=== PATIENT | male | born 1935 | race Native Hawaiian/Other Pacific Islander ===

== ENCOUNTER 2016-05-06 09:59 | Inpatient (IN) | payer MEDICARE, MEDICAID ==
[~2016-05-06] VITALS: Ht 167.6 cm; Wt 53.3 kg
[~2016-05-06 09:59] MED LIST: ASPI-1061 PO; CARV12 PO; FURO-152 PO; LEVO75TA4 PO; MECL-111 PO; METO25 PO; MULT-1203 PO; OLAN7.5T2 PO; PROZ10 PO; SIMV5TAB6 PO
[2016-05-06 10:42] LABS: BASOPHILS % (AUTO) 0.3 % (0.0-2.0); EOSINOPHILS % (AUTO) 13.5 % (1.0-6.0); HEMATOCRIT 29.9 % (41-53); HEMOGLOBIN 9.4 g/dL (13.5-17.5); LYMPHOCYTES # (AUTO) 0.4 K/uL (1.0-4.8); LYMPHOCYTES % (AUTO) 9.7 % (22.0-44.0); MEAN CORPUSCULAR HEMOGLOBIN 25.7 pg (26.0-34.0); MEAN CORPUSCULAR HGB CONC 31.3 G/dL (31.0-37.0); MEAN CORPUSCULAR VOLUME 82 fL (80-100); MONOCYTES # (AUTO) 0.3 K/uL (0.1-1.0); MONOCYTES % (AUTO) 7.3 % (2.0-9.0); NEUTROPHILS # (AUTO) 3.2 K/uL (1.8-7.7); NEUTROPHILS % (AUTO) 69.2 % (40.0-70.0); PLATELET COUNT (AUTO) 204 K/uL (150-450); RED BLOOD CELL COUNT(AUTO) 3.66 MIL/uL (4.50-5.90); RED CELL DISTRIBUTION WIDTH 17.4 % (11.5-14.5); WHITE BLOOD COUNT (AUTO) 4.6 K/uL (4.5-11.0)
[2016-05-06 10:44] LABS: ANION GAP 10 mmol/L (8-16); CALCIUM, TOTAL 8.5 mg/dL (8.8-10.5); CARBON DIOXIDE 24 mmol/L (22-29); CHLORIDE 109 mmol/L (98-107); GLOMERULAR FILTR. RATE CALC 53 mL/min (>60); POTASSIUM 3.7 mmol/L (3.5-5.1); SODIUM SERUM 143 mmol/L (136-145); UREA NITROGEN, BLOOD 19 mg/dL (7-18)
[2016-05-06 10:50] LABS: ALANINE AMINOTRANSFERASE 31 U/L (12-78); ALBUMIN 3.5 g/dL (3.4-5.0); ASPARTATE AMINOTRANSFERASE 19 U/L (15-37); BILIRUBIN,TOTAL 0.7 mg/dL (0.1-1.0); TOTAL PROTEIN, SERUM 7.4 g/dL (6.4-8.2)
[2016-05-06 10:56] LABS: RBC MORPHOLOGY COMMENT ABNORMAL RBC MORPH
[2016-05-06] MEDS ORDERED: LORazepam 2 MG TABLET PO ONE (11:30)
[2016-05-06] MEDS ORDERED: LORazepam 2 MG TABLET PO PRN (12:15)
[2016-05-06] MEDS ORDERED: ZOLPIDEM TARTRATE 10 MG TABLET PO PRN (12:15)
[2016-05-06] MEDS ORDERED: OLANZapine 5 MG RAPDIS TABLET PO PRN (12:15)
[2016-05-06 16:52] VITALS: BP 154/84
[2016-05-06] MEDS ORDERED: INFLUENZA VIRUS VACCINE QVS 2016-17 (3YR+)/PF 60 MCG/0.5 ML SYRINGE IM ONE (17:15)
[2016-05-06] MEDS ORDERED: PNEUMOCOCCAL VACCINE POLYVALENT 0.5 ML VIAL [PPSV23] IM ONE (17:15)
[2016-05-06] MEDS: CARVEDILOL 12.5 MG TABLET PO SCH (20:04)
[2016-05-06 20:05] VITALS: BP 150/75
[2016-05-06] MEDS ORDERED: HydrALAZINE HCL 25 MG TABLET PO PRN (21:30)
[2016-05-06] MEDS: OLANZapine 7.5 MG TABLET PO SCH (21:49)
[2016-05-07 06:21] VITALS: BP 116/64
[2016-05-07] MEDS: LEVOTHYROXINE SODIUM 75 MCG TABLET PO SCH (06:49)
[2016-05-07] MEDS ORDERED: ACETAMINOPHEN 325 MG TABLET PO PRN (07:00)
[2016-05-07] MEDS: MULTIVITAMINS WITH MINERALS, THERAPEUTIC TABLET PO SCH (08:37)
[2016-05-07] MEDS: ASPIRIN 81 MG CHEWABLE TABLET PO SCH (08:38)
[2016-05-07] MEDS: SIMVASTATIN 5 MG TABLET PO SCH (08:38)
[2016-05-07] MEDS: FUROSEMIDE 20 MG TABLET PO SCH (08:38)
[2016-05-07] MEDS: CARVEDILOL 12.5 MG TABLET PO SCH ×2 (08:38→16:09)
[2016-05-07] MEDS: NICOTINE 14 MG/24 HOUR PATCH TD SCH (08:40)
[2016-05-07] MEDS ORDERED: METOPROLOL TARTRATE 25 MG TABLET PO SCH (09:00)
[2016-05-07] MEDS: IBUPROFEN 400 MG TABLET PO PRN (13:04)
[2016-05-07 14:05] VITALS: BP 145/83
[2016-05-07 16:41] VITALS: BP 139/78
[2016-05-07] MEDS ORDERED: ONDANSETRON HCL 4 MG TABLET PO PRN (19:15)
[2016-05-07] MEDS: ONDANSETRON HCL 4 MG/2 ML VIAL IM PRN (20:07)
[2016-05-07] MEDS: OLANZapine 7.5 MG TABLET PO SCH ×2 (20:59→22:44)
[2016-05-08 04:30] VITALS: BP 125/72
[2016-05-08] MEDS: LEVOTHYROXINE SODIUM 75 MCG TABLET PO SCH (06:37)
[2016-05-08] MEDS: ASPIRIN 81 MG CHEWABLE TABLET PO SCH (08:30)
[2016-05-08] MEDS: SIMVASTATIN 5 MG TABLET PO SCH (08:30)
[2016-05-08] MEDS: FUROSEMIDE 20 MG TABLET PO SCH (08:30)
[2016-05-08] MEDS: CARVEDILOL 12.5 MG TABLET PO SCH ×2 (08:30→17:31)
[2016-05-08] MEDS: MULTIVITAMINS WITH MINERALS, THERAPEUTIC TABLET PO SCH (08:30)
[2016-05-08] MEDS: NICOTINE 14 MG/24 HOUR PATCH TD SCH (09:12)
[2016-05-08 10:22] VITALS: BP 141/77
[2016-05-08] MEDS: FERROUS SULFATE 325 MG EC TABLET PO SCH ×2 (11:53→17:32)
[2016-05-08] MEDS: ONDANSETRON HCL 4 MG/2 ML VIAL IM PRN (12:03)
[2016-05-08 17:22] VITALS: BP 138/72
[2016-05-08] MEDS: OLANZapine 7.5 MG TABLET PO SCH (20:59)
[2016-05-09 04:16] VITALS: BP 129/70
[2016-05-09] MEDS: LEVOTHYROXINE SODIUM 75 MCG TABLET PO SCH (05:57)
[2016-05-09] MEDS: FERROUS SULFATE 325 MG EC TABLET PO SCH ×2 (05:57→16:45)
[2016-05-09 08:30] VITALS: BP 154/74
[2016-05-09] MEDS: CARVEDILOL 12.5 MG TABLET PO SCH ×2 (09:30→16:34)
[2016-05-09] MEDS: ASPIRIN 81 MG CHEWABLE TABLET PO SCH (09:46)
[2016-05-09] MEDS: FUROSEMIDE 20 MG TABLET PO SCH (09:46)
[2016-05-09] MEDS: MULTIVITAMINS WITH MINERALS, THERAPEUTIC TABLET PO SCH (09:46)
[2016-05-09] MEDS: SIMVASTATIN 5 MG TABLET PO SCH (09:46)
[2016-05-09] MEDS: NICOTINE 14 MG/24 HOUR PATCH TD SCH (09:50)
[2016-05-09 16:23] VITALS: BP 142/78
[2016-05-09] MEDS: OLANZapine 7.5 MG TABLET PO SCH (20:32)
[2016-05-10] MEDS: LEVOTHYROXINE SODIUM 75 MCG TABLET PO SCH (06:34)
[2016-05-10] MEDS: FERROUS SULFATE 325 MG EC TABLET PO SCH ×2 (06:34→16:30)
[2016-05-10 08:07] VITALS: BP 155/98
[2016-05-10] MEDS: MULTIVITAMINS WITH MINERALS, THERAPEUTIC TABLET PO SCH (09:06)
[2016-05-10] MEDS: FUROSEMIDE 20 MG TABLET PO SCH (09:07)
[2016-05-10] MEDS: ASPIRIN 81 MG CHEWABLE TABLET PO SCH (09:07)
[2016-05-10] MEDS: CARVEDILOL 12.5 MG TABLET PO SCH ×2 (09:07→16:30)
[2016-05-10] MEDS: SIMVASTATIN 5 MG TABLET PO SCH (09:07)
[2016-05-10] MEDS: NICOTINE 14 MG/24 HOUR PATCH TD SCH (09:20)
[2016-05-10 16:44] VITALS: BP 123/78
[2016-05-10] MEDS: OLANZapine 7.5 MG TABLET PO SCH (20:37)
[2016-05-11 04:44] VITALS: BP 134/76
[2016-05-11] MEDS: LEVOTHYROXINE SODIUM 75 MCG TABLET PO SCH (07:04)
[2016-05-11] MEDS: FERROUS SULFATE 325 MG EC TABLET PO SCH ×2 (07:04→16:31)
[2016-05-11 08:07] VITALS: BP 144/87
[2016-05-11] MEDS: CARVEDILOL 12.5 MG TABLET PO SCH ×2 (09:30→16:31)
[2016-05-11] MEDS: ASPIRIN 81 MG CHEWABLE TABLET PO SCH (09:30)
[2016-05-11] MEDS: SIMVASTATIN 5 MG TABLET PO SCH (09:30)
[2016-05-11] MEDS: MULTIVITAMINS WITH MINERALS, THERAPEUTIC TABLET PO SCH (09:30)
[2016-05-11] MEDS: FUROSEMIDE 20 MG TABLET PO SCH (09:30)
[2016-05-11] MEDS: NICOTINE 14 MG/24 HOUR PATCH TD SCH (09:37)
[2016-05-11 16:26] VITALS: BP 149/98
[2016-05-11] MEDS: OLANZapine 7.5 MG TABLET PO SCH (20:19)
[2016-05-11 21:27] VITALS: BP 145/71
[2016-05-11] MEDS: IBUPROFEN 400 MG TABLET PO PRN (21:30)
[2016-05-12 05:47] VITALS: BP 137/81
[2016-05-12] MEDS: LEVOTHYROXINE SODIUM 75 MCG TABLET PO SCH (06:11)
[2016-05-12] MEDS: FERROUS SULFATE 325 MG EC TABLET PO SCH (06:14)
[2016-05-12 08:07] VITALS: BP 144/80
[2016-05-12] MEDS: MULTIVITAMINS WITH MINERALS, THERAPEUTIC TABLET PO SCH (08:10)
[2016-05-12] MEDS: FUROSEMIDE 20 MG TABLET PO SCH (08:10)
[2016-05-12] MEDS: ASPIRIN 81 MG CHEWABLE TABLET PO SCH (08:10)
[2016-05-12] MEDS: SIMVASTATIN 5 MG TABLET PO SCH (08:11)
[2016-05-12] MEDS: CARVEDILOL 12.5 MG TABLET PO SCH (08:11)
[2016-05-12] MEDS: NICOTINE 14 MG/24 HOUR PATCH TD SCH (08:13)
[2016-05-12] MEDS: IBUPROFEN 400 MG TABLET PO PRN (12:54)
[2016-05-12] MEDS ORDERED: OLAN7.5T2 PO (15:15)
== END 2016-05-12 16:00 | disposition home or self-care (01) | DRG 750 ==
LOC: EMS 10:01 → EEVIPCON 10:01 → 3EI 16:04
DX: F25.0 Schizoaffective disorder, bipolar type (principal); I11.0 Hypertensive heart disease with heart failure; I50.9 Heart failure, unspecified; R45.851 Suicidal ideations; F41.0 Panic disorder [episodic paroxysmal anxiety]; E03.9 Hypothyroidism, unspecified; E78.00 Pure hypercholesterolemia, unspecified; E78.5 Hyperlipidemia, unspecified; I25.10 Atherosclerotic heart disease of native coronary artery without angina pectoris; F39 Unspecified mood [affective] disorder; D64.9 Anemia, unspecified; J44.9 Chronic obstructive pulmonary disease, unspecified; N40.0 Benign prostatic hyperplasia without lower urinary tract symptoms; Z59.0 Homelessness; Z79.899 Other long term (current) drug therapy; Z79.82 Long term (current) use of aspirin; Z98.890 Other specified postprocedural states
CPT/HCPCS: 83540; 83550; 87081; 93005; 99285; G0480; J2405

== ENCOUNTER 2016-07-13 15:55 | Emergency (ER) | payer MEDICARE, OTHER ==
[~2016-07-13] VITALS: Ht 167.6 cm; Wt 54.5 kg
[~2016-07-13 15:55] MED LIST changes: -MECL-111 PO; -METO25 PO; -MULT-1203 PO; -PROZ10 PO
[2016-07-13 16:17] LABS: BASOPHILS # (AUTO) 0.02 K/uL (0.00-0.20); BASOPHILS % (AUTO) 0.3 % (0.0-2.0); EOSINOPHILS # (AUTO) 0.44 K/uL (0.00-0.70); EOSINOPHILS % (AUTO) 7.02 % (1.0-6.0); HEMATOCRIT 37.2 % (41-53); HEMOGLOBIN 11.5 g/dL (13.5-17.5); LYMPHOCYTES # (AUTO) 0.8 K/uL (1.0-4.8); MEAN CORPUSCULAR HEMOGLOBIN 22.1 pg (26.0-34.0); MEAN CORPUSCULAR HGB CONC 30.8 G/dL (31.0-37.0); MEAN CORPUSCULAR VOLUME 72 fL (80-100); MONOCYTES # (AUTO) 0.4 K/uL (0.1-1.0); MONOCYTES % (AUTO) 6.1 % (2.0-9.0); NEUTROPHILS # (AUTO) 4.6 K/uL (1.8-7.7); NEUTROPHILS % (AUTO) 73.6 % (40.0-70.0); PLATELET COUNT (AUTO) 236 K/uL (150-450); RED BLOOD CELL COUNT(AUTO) 5.18 MIL/uL (4.50-5.90); RED CELL DISTRIBUTION WIDTH 21.2 % (11.5-14.5); WHITE BLOOD COUNT (AUTO) 6.3 K/uL (4.5-11.0)
[2016-07-13 16:26] LABS: ANION GAP 10 mmol/L (8-16); CALCIUM, TOTAL 8.4 mg/dL (8.8-10.5); CARBON DIOXIDE 27 mmol/L (22-29); CHLORIDE 102 mmol/L (98-107); CREATININE 1.34 mg/dL (0.60-1.30); GLOMERULAR FILTR. RATE CALC 51 mL/min (>60); POTASSIUM 4.3 mmol/L (3.5-5.1); SODIUM SERUM 139 mmol/L (136-145); UREA NITROGEN, BLOOD 27 mg/dL (7-18)
[2016-07-13 16:34] LABS: ALANINE AMINOTRANSFERASE 98 U/L (12-78); ALBUMIN 3.7 g/dL (3.4-5.0); ASPARTATE AMINOTRANSFERASE 86 U/L (15-37); BILIRUBIN,TOTAL 0.7 mg/dL (0.1-1.0); TOTAL PROTEIN, SERUM 7.8 g/dL (6.4-8.2)
[2016-07-13 20:21] VITALS: BP 151/90
== END 2016-07-13 21:08 | disposition home or self-care (01) ==
LOC: EMS 15:58
DX: F31.9 Bipolar disorder, unspecified (principal); I10 Essential (primary) hypertension; E78.00 Pure hypercholesterolemia, unspecified; Z79.82 Long term (current) use of aspirin; Z91.013 Allergy to seafood
CPT/HCPCS: 36415; 80053; 80307; 85025; 99285; G0480

== ENCOUNTER 2016-11-02 18:31 | Inpatient (IN) | payer MEDICARE, OTHER ==
[~2016-11-02] VITALS: Ht 167.6 cm; Wt 52.2 kg
[2016-11-02 20:13] LABS: BASOPHILS % (AUTO) 0.4 % (0.0-2.0); EOSINOPHILS % (AUTO) 11.7 % (1.0-6.0); HEMATOCRIT 38.7 % (41-53); HEMOGLOBIN 12.4 g/dL (13.5-17.5); LYMPHOCYTES # (AUTO) 0.6 K/uL (1.0-4.8); LYMPHOCYTES % (AUTO) 15.3 % (22.0-44.0); MEAN CORPUSCULAR HEMOGLOBIN 24.6 pg (26.0-34.0); MEAN CORPUSCULAR VOLUME 77 fL (80-100); MONOCYTES # (AUTO) 0.3 K/uL (0.1-1.0); MONOCYTES % (AUTO) 8.5 % (2.0-9.0); NEUTROPHILS # (AUTO) 2.3 K/uL (1.8-7.7); NEUTROPHILS % (AUTO) 64.1 % (40.0-70.0); PLATELET COUNT (AUTO) 160 K/uL (150-450); RED BLOOD CELL COUNT(AUTO) 5.04 MIL/uL (4.50-5.90); RED CELL DISTRIBUTION WIDTH 21.9 % (11.5-14.5); WHITE BLOOD COUNT (AUTO) 3.6 K/uL (4.5-11.0)
[2016-11-02 20:21] LABS: ANION GAP 9 mmol/L (8-16); CALCIUM, TOTAL 9.1 mg/dL (8.8-10.5); CARBON DIOXIDE 26 mmol/L (22-29); CHLORIDE 107 mmol/L (98-107); CREATININE 1.34 mg/dL (0.60-1.30); GLOMERULAR FILTR. RATE CALC 51 mL/min (>60); POTASSIUM 4.2 mmol/L (3.5-5.1); SODIUM SERUM 142 mmol/L (136-145); UREA NITROGEN, BLOOD 21 mg/dL (7-18)
[2016-11-02 20:37] LABS: B-TYPE NATRIURETIC PEPTIDE 3170 pg/mL (0-100)
[2016-11-02 20:41] LABS: INR 1.1 (0.9-1.1)
[2016-11-02] MEDS ORDERED: ASPIRIN 81 MG CHEWABLE TABLET PO ONE (20:45)
[2016-11-02] MEDS ORDERED: NITROGLYCERIN 2% (1 GM=INCH) PACKET TP ONE (20:45)
[2016-11-02] MEDS ORDERED: FUROSEMIDE 40 MG/4 ML VIAL IVP ONE (20:45)
[2016-11-02 20:46] LABS: ALANINE AMINOTRANSFERASE 54 U/L (12-78); ALBUMIN 3.3 g/dL (3.4-5.0); ASPARTATE AMINOTRANSFERASE 57 U/L (15-37); BILIRUBIN,TOTAL 0.9 mg/dL (0.1-1.0); CREATINE KINASE MB 3.2 ng/mL (0-5); CREATINE KINASE, TOTAL 173 U/L (39-308); TOTAL PROTEIN, SERUM 6.8 g/dL (6.4-8.2)
[2016-11-02] MEDS ORDERED: 0.9% SODIUM CHLORIDE 10 ML SYRINGE IVP PRN (21:15)
[2016-11-02 22:22] LABS: APPEARANCE,URINE CLEAR (CLEAR); GLUCOSE, URINE (UA) NEGATIVE (NEGATIVE); KETONES,URINE NEGATIVE (NEGATIVE); LEUKOCYTE ESTERASE ,URINE NEGATIVE (NEGATIVE); OCCULT BLOOD,URINE NEGATIVE (NEGATIVE); PROTEIN,URINE NEGATIVE (NEGATIVE)
[2016-11-02 22:23] VITALS: BP 149/89
[2016-11-02 22:23] LABS: ADD UA MICROSCOPIC NO
[2016-11-03] MEDS: ACETAMINOPHEN 325 MG TABLET PO PRN ×3 (00:52→09:49)
[2016-11-03 05:22] VITALS: BP 153/83
[2016-11-03 07:45] LABS: HEMATOCRIT 37.7 % (41-53); MEAN CORPUSCULAR HEMOGLOBIN 24.4 pg (26.0-34.0); MEAN CORPUSCULAR HGB CONC 31.9 G/dL (31.0-37.0); MEAN CORPUSCULAR VOLUME 77 fL (80-100); PLATELET COUNT (AUTO) 156 K/uL (150-450); RED BLOOD CELL COUNT(AUTO) 4.92 MIL/uL (4.50-5.90); RED CELL DISTRIBUTION WIDTH 21.8 % (11.5-14.5); WHITE BLOOD COUNT (AUTO) 3.4 K/uL (4.5-11.0)
[2016-11-03 07:56] VITALS: BP 145/89
[2016-11-03 08:09] LABS: ALBUMIN 3.2 g/dL (3.4-5.0); BILIRUBIN,TOTAL 0.9 mg/dL (0.1-1.0); CALCIUM, TOTAL 8.8 mg/dL (8.8-10.5); CREATININE 1.39 mg/dL (0.60-1.30); POTASSIUM 3.6 mmol/L (3.5-5.1); TOTAL PROTEIN, SERUM 6.4 g/dL (6.4-8.2)
[2016-11-03 09:40] LABS: BAND NEUTROPHILS % (MANUAL) 1 % (1-5); EOSINOPHILS % (MANUAL) 3 % (1-6); LYMPHOCYTES % (MANUAL) 54 % (22-44); TOTAL CELLS COUNTED 100
[2016-11-03 09:41] LABS: RBC MORPHOLOGY COMMENT ABNORMAL RBC MORPH
[2016-11-03 11:51] VITALS: BP 150/96
[2016-11-03] MEDS ORDERED: ONDANSETRON HCL 4 MG/2 ML VIAL IVP PRN (12:00)
[2016-11-03] MEDS ORDERED: ZOLPIDEM TARTRATE 5 MG TABLET PO PRN (12:00)
[2016-11-03] MEDS ORDERED: OxyCODONE HCL/ACETAMINOPHEN 5-325 MG TABLET PO PRN (12:00)
[2016-11-03] MEDS ORDERED: CloNIDine HCL 0.1 MG TABLET PO PRN (12:00)
[2016-11-03] MEDS ORDERED: BISACODYL 10 MG RECTAL RECTAL SUPPOSITORY PR PRN (12:00)
[2016-11-03] MEDS ORDERED: ACETAMINOPHEN 325 MG TABLET PO PRN (12:00)
[2016-11-03] MEDS ORDERED: MORPHINE SULFATE 2 MG/ML SYRINGE IVP PRN (12:00)
[2016-11-03] MEDS ORDERED: MAGNESIUM HYDROXIDE SUSPENSION 30 ML UDCUP PO PRN (12:00)
[2016-11-03] MEDS: CARVEDILOL 12.5 MG TABLET PO SCH ×2 (13:05→19:59)
[2016-11-03] MEDS: NITROGLYCERIN 2% (1 GM=INCH) PACKET TP SCH ×3 (13:05→23:21)
[2016-11-03] MEDS: ALBUTEROL SULFATE 2.5 MG/0.5 ML NEB SOLUTION NEB PRN (14:50)
[2016-11-03] MEDS: IPRATROPIUM BROMIDE 0.5 MG/2.5 ML NEB SOLUTION NEB PRN (14:50)
[2016-11-03 15:53] VITALS: BP 119/65
[2016-11-03 19:47] VITALS: BP 102/50
[2016-11-03] MEDS: HEPARIN SODIUM,PORCINE 5,000 UNITS/ML VIAL SQ SCH (19:59)
[2016-11-03] MEDS: OLANZapine 7.5 MG TABLET PO SCH (19:59)
[2016-11-04] VITALS (7 sets, daily range): BP systolic 116–140; BP diastolic 65–88
[2016-11-04] MEDS: NITROGLYCERIN 2% (1 GM=INCH) PACKET TP SCH ×4 (06:18→23:44)
[2016-11-04] MEDS: LEVOTHYROXINE SODIUM 75 MCG TABLET PO SCH (06:20)
[2016-11-04 07:03] LABS: BASOPHILS % (AUTO) 0.9 % (0.0-2.0); HEMATOCRIT 37.6 % (41-53); HEMOGLOBIN 12.3 g/dL (13.5-17.5); LYMPHOCYTES # (AUTO) 0.5 K/uL (1.0-4.8); LYMPHOCYTES % (AUTO) 15.9 % (22.0-44.0); MEAN CORPUSCULAR HEMOGLOBIN 24.7 pg (26.0-34.0); MEAN CORPUSCULAR HGB CONC 32.5 G/dL (31.0-37.0); MEAN CORPUSCULAR VOLUME 76 fL (80-100); MONOCYTES # (AUTO) 0.2 K/uL (0.1-1.0); MONOCYTES % (AUTO) 7.4 % (2.0-9.0); NEUTROPHILS # (AUTO) 1.6 K/uL (1.8-7.7); NEUTROPHILS % (AUTO) 49.4 % (40.0-70.0); PLATELET COUNT (AUTO) 140 K/uL (150-450); RED BLOOD CELL COUNT(AUTO) 4.95 MIL/uL (4.50-5.90); WHITE BLOOD COUNT (AUTO) 3.3 K/uL (4.5-11.0)
[2016-11-04 07:04] LABS: EOSINOPHILS % (AUTO) 26.4 % (1.0-6.0)
[2016-11-04 07:36] LABS: ALBUMIN 2.9 g/dL (3.4-5.0); BILIRUBIN,TOTAL 0.8 mg/dL (0.1-1.0); CALCIUM, TOTAL 8.8 mg/dL (8.8-10.5); CREATININE 1.39 mg/dL (0.60-1.30); PHOSPHORUS 3.4 mg/dL (2.5-4.9); TOTAL PROTEIN, SERUM 6.3 g/dL (6.4-8.2)
[2016-11-04] MEDS: PANTOPRAZOLE SODIUM 40 MG DR TABLET PO SCH (08:07)
[2016-11-04] MEDS: CARVEDILOL 12.5 MG TABLET PO SCH ×2 (08:07→20:12)
[2016-11-04] MEDS: SIMVASTATIN 5 MG TABLET PO SCH (08:07)
[2016-11-04] MEDS: FUROSEMIDE 20 MG TABLET PO SCH (08:07)
[2016-11-04] MEDS: ASPIRIN 81 MG EC TABLET PO SCH (08:07)
[2016-11-04] MEDS: HEPARIN SODIUM,PORCINE 5,000 UNITS/ML VIAL SQ SCH ×2 (08:08→20:13)
[2016-11-04 10:00] LABS: RBC MORPHOLOGY COMMENT ABNORMAL RBC MORPH
[2016-11-04] MEDS: IPRATROPIUM BROMIDE 0.5 MG/2.5 ML NEB SOLUTION NEB PRN (14:25)
[2016-11-04] MEDS: ALBUTEROL SULFATE 2.5 MG/0.5 ML NEB SOLUTION NEB PRN (14:25)
[2016-11-04] MEDS ORDERED: DENTURE ADHESIVE 68 GM CREAM DT PRN (15:30)
[2016-11-04] MEDS: OLANZapine 7.5 MG TABLET PO SCH (20:13)
[2016-11-05 04:59] VITALS: BP 117/56
[2016-11-05] MEDS: NITROGLYCERIN 2% (1 GM=INCH) PACKET TP SCH ×2 (06:42→12:00)
[2016-11-05] MEDS: LEVOTHYROXINE SODIUM 75 MCG TABLET PO SCH (06:47)
[2016-11-05 07:45] VITALS: BP 121/75
[2016-11-05] MEDS: ASPIRIN 81 MG EC TABLET PO SCH (08:10)
[2016-11-05] MEDS: FUROSEMIDE 20 MG TABLET PO SCH (08:10)
[2016-11-05] MEDS: HEPARIN SODIUM,PORCINE 5,000 UNITS/ML VIAL SQ SCH (08:10)
[2016-11-05] MEDS: PANTOPRAZOLE SODIUM 40 MG DR TABLET PO SCH (08:10)
[2016-11-05] MEDS: CARVEDILOL 12.5 MG TABLET PO SCH (08:10)
[2016-11-05] MEDS: SIMVASTATIN 5 MG TABLET PO SCH (08:10)
[2016-11-05 11:35] VITALS: BP 110/65
== END 2016-11-05 14:10 | disposition home or self-care (01) | DRG 194 ==
LOC: EMS 18:31 → 5N 21:21
PROVIDERS: ADMIT Internal Medicine; ATTEND Internal Medicine
DX: I13.0 Hypertensive heart and chronic kidney disease with heart failure and stage 1 through stage 4 chronic kidney disease, or unspecified chronic kidney disease (principal); E44.0 Moderate protein-calorie malnutrition; I27.2 Other secondary pulmonary hypertension; F25.9 Schizoaffective disorder, unspecified; N18.3 Chronic kidney disease, stage 3 (moderate); I25.5 Ischemic cardiomyopathy; I50.23 Acute on chronic systolic (congestive) heart failure; E03.9 Hypothyroidism, unspecified; E78.00 Pure hypercholesterolemia, unspecified; N28.9 Disorder of kidney and ureter, unspecified; F31.9 Bipolar disorder, unspecified; H40.9 Unspecified glaucoma; G89.29 Other chronic pain; M54.9 Dorsalgia, unspecified; E78.5 Hyperlipidemia, unspecified; Z91.013 Allergy to seafood; Z79.899 Other long term (current) drug therapy; Z79.82 Long term (current) use of aspirin; Z98.49 Cataract extraction status, unspecified eye; Z68.1 Body mass index [BMI] 19.9 or less, adult; Z91.19 Patient's noncompliance with other medical treatment and regimen; Z82.49 Family history of ischemic heart disease and other diseases of the circulatory system
CPT/HCPCS: 83735; 84100; 93005; 93306; 94640; 96374; 99285; J1644; J1940; J2270

== ENCOUNTER 2018-01-19 16:06 | Emergency (ER) | payer MEDICARE, MEDICAID ==
[~2018-01-19] VITALS: Ht 152.4 cm; Wt 54.5 kg
[~2018-01-19 16:06] MED LIST changes: -ASPI-1061 PO; +ASPI81TA87 PO
[2018-01-19] MEDS ORDERED: GuaiFENesin/D-METHORPHAN [SUGAR-FREE] 200-20MG/10 ML SYRUP UDCUP PO ONE (19:00)
[2018-01-19] MEDS ORDERED: IBUPROFEN 600 MG TABLET PO ONE (19:00)
[2018-01-19 19:34] VITALS: BP 161/75
== END 2018-01-19 19:36 | disposition home or self-care (01) ==
LOC: EMS 16:07
DX: S83.92XA Sprain of unspecified site of left knee, initial encounter (principal); I10 Essential (primary) hypertension; E78.00 Pure hypercholesterolemia, unspecified; F31.9 Bipolar disorder, unspecified; W01.0XXA Fall on same level from slipping, tripping and stumbling without subsequent striking against object, initial encounter; Y93.01 Activity, walking, marching and hiking; Y92.89 Other specified places as the place of occurrence of the external cause; Y99.8 Other external cause status

== ENCOUNTER 2018-02-03 12:04 | Emergency (ER) | payer MEDICARE, MEDICAID ==
[~2018-02-03] VITALS: Ht 165.1 cm; Wt 54.5 kg
[2018-02-03] MEDS ORDERED: IBUPROFEN 600 MG TABLET PO ONE (14:15)
[2018-02-03] MEDS ORDERED: LIDOCAINE 5% TRANSDERMAL PATCH TD ONE (14:15)
[2018-02-03 15:07] VITALS: BP 134/62
== END 2018-02-03 15:08 | disposition home or self-care (01) ==
LOC: EMS 12:06
DX: G89.29 Other chronic pain (principal); M54.5 Low back pain; R05 Cough; F31.9 Bipolar disorder, unspecified; H40.9 Unspecified glaucoma; E78.00 Pure hypercholesterolemia, unspecified; I10 Essential (primary) hypertension; Z98.890 Other specified postprocedural states; Z79.82 Long term (current) use of aspirin; Z79.899 Other long term (current) drug therapy; Z91.013 Allergy to seafood

== ENCOUNTER 2018-05-21 21:53 | Emergency (ER) | payer MEDICARE, MEDICAID ==
[~2018-05-21] VITALS: Ht 170.2 cm; Wt 71.0 kg
[~2018-05-21 21:53] MED LIST changes: +SIMV5TAB59 PO; -SIMV5TAB6 PO
[2018-05-21 22:51] LABS: BASOPHILS % (AUTO) 0.2 % (0.0-2.0); EOSINOPHILS % (AUTO) 4.3 % (1.0-6.0); HEMOGLOBIN 14.6 g/dL (13.5-17.5); LYMPHOCYTES # (AUTO) 0.4 K/uL (1.0-4.8); LYMPHOCYTES % (AUTO) 6.1 % (22.0-44.0); MEAN CORPUSCULAR HEMOGLOBIN 26.6 pg (26.0-34.0); MEAN CORPUSCULAR HGB CONC 33.3 G/dL (31.0-37.0); MEAN CORPUSCULAR VOLUME 80 fL (80-100); MONOCYTES # (AUTO) 0.4 K/uL (0.1-1.0); MONOCYTES % (AUTO) 5.8 % (2.0-9.0); NEUTROPHILS # (AUTO) 5.7 K/uL (1.8-7.7); NEUTROPHILS % (AUTO) 83.6 % (40.0-70.0); PLATELET COUNT (AUTO) 121 K/uL (150-450); RED CELL DISTRIBUTION WIDTH 19.2 % (11.5-14.5)
[2018-05-21 23:13] LABS: ANION GAP 12 mmol/L (8-16); CALCIUM, TOTAL 9.7 mg/dL (8.8-10.5); CARBON DIOXIDE 27 mmol/L (22-29); CHLORIDE 103 mmol/L (98-107); CREATININE 1.12 mg/dL (0.60-1.30); GLUCOSE,RANDOM 148 mg/dL (70-110); POTASSIUM 3.3 mmol/L (3.5-5.1); SODIUM SERUM 142 mmol/L (136-145); UREA NITROGEN, BLOOD 17 mg/dL (7-18)
[2018-05-21 23:14] LABS: GLOMERULAR FILTR. RATE CALC > 60 mL/min (>60)
[2018-05-21 23:17] LABS: ALANINE AMINOTRANSFERASE 77 U/L (12-78); ALKALINE PHOSPHATASE 144 U/L (46-116); ASPARTATE AMINOTRANSFERASE 49 U/L (15-37); BILIRUBIN,TOTAL 0.6 mg/dL (0.1-1.0); TOTAL PROTEIN, SERUM 8.3 g/dL (6.4-8.2)
[2018-05-21] MEDS ORDERED: IOVERSOL 320 MG/ML 100 ML VIAL ONE (23:59)
[2018-05-21] MEDS ORDERED: SODIUM CHLORIDE 0.9% 100 ML ONE (23:59)
[2018-05-22 00:36] LABS: LIPASE 246 U/L (73-393)
[2018-05-22] MEDS ORDERED: ACETAMINOPHEN 325 MG TABLET PO ONE (02:45)
[2018-05-22 05:50] VITALS: BP 137/85
== END 2018-05-22 06:18 | disposition home or self-care (01) ==
LOC: EMS 21:55
DX: K44.9 Diaphragmatic hernia without obstruction or gangrene (principal); N28.1 Cyst of kidney, acquired; K40.90 Unilateral inguinal hernia, without obstruction or gangrene, not specified as recurrent; R42 Dizziness and giddiness; I10 Essential (primary) hypertension; E78.00 Pure hypercholesterolemia, unspecified; F31.9 Bipolar disorder, unspecified; Z79.899 Other long term (current) drug therapy; Z79.82 Long term (current) use of aspirin
CPT/HCPCS: 36415; 70450; 71045; 74177; 80053; 83690; 84484; 85025; 93005; 99284; J7050; Q9967

== ENCOUNTER 2018-06-09 21:28 | Emergency (ER) | payer MEDICARE, MEDICAID ==
[~2018-06-09] VITALS: Ht 175.3 cm; Wt 61.4 kg
[2018-06-09] MEDS ORDERED: LEVO75CA2 PO (22:47)
[2018-06-09] MEDS ORDERED: OLAN5TAB2 PO (22:47)
[2018-06-09] MEDS ORDERED: METO25XL PO (22:47)
[2018-06-09] MEDS ORDERED: AMLO-511 PO (22:47)
[2018-06-09] MEDS ORDERED: ATOR40TA28 PO (22:47)
[2018-06-09] MEDS ORDERED: IBUPROFEN 800 MG TABLET PO ONE (23:30)
[2018-06-09] MEDS ORDERED: CloNIDine HCL 0.2 MG TABLET PO ONE (23:30)
[2018-06-09] MEDS ORDERED: FUROSEMIDE 20 MG TABLET PO ONE (23:30)
[2018-06-09] MEDS ORDERED: ASPIRIN 325 MG TABLET PO ONE (23:45)
[2018-06-10 03:05] VITALS: BP 131/77
== END 2018-06-10 03:44 | disposition home or self-care (01) ==
LOC: EMS 21:30
DX: K40.90 Unilateral inguinal hernia, without obstruction or gangrene, not specified as recurrent (principal); I10 Essential (primary) hypertension; F31.9 Bipolar disorder, unspecified; E78.00 Pure hypercholesterolemia, unspecified; Z79.899 Other long term (current) drug therapy; Z79.82 Long term (current) use of aspirin
CPT/HCPCS: 93005

== ENCOUNTER 2018-06-16 04:58 | Emergency (ER) | payer MEDICARE, MEDICAID ==
[~2018-06-16] VITALS: Ht 170.2 cm; Wt 75.0 kg
[~2018-06-16 04:58] MED LIST changes: +AMLO-511 PO; +ATOR40TA28 PO; -CARV12 PO; +LEVO75CA2 PO; +METO25XL PO; +OLAN5TAB2 PO; -OLAN7.5T2 PO; -SIMV5TAB59 PO
[2018-06-16 05:24] VITALS: BP 190/103
[2018-06-16] MEDS ORDERED: KETOROLAC TROMETHAMINE 60 MG/2 ML VIAL IM ONE (05:30)
== END 2018-06-16 06:20 | disposition home or self-care (01) ==
LOC: EMS 05:00
DX: G89.29 Other chronic pain (principal); M79.672 Pain in left foot; M79.671 Pain in right foot; E78.00 Pure hypercholesterolemia, unspecified; H40.9 Unspecified glaucoma; I10 Essential (primary) hypertension; F31.9 Bipolar disorder, unspecified; Z79.899 Other long term (current) drug therapy; Z91.013 Allergy to seafood; Z98.49 Cataract extraction status, unspecified eye; Z79.82 Long term (current) use of aspirin
CPT/HCPCS: 96372; 99283; J1885

== ENCOUNTER 2018-06-18 09:33 | Emergency (ER) | payer MEDICARE, MEDICAID ==
[~2018-06-18] VITALS: Ht 165.1 cm; Wt 69.5 kg
[2018-06-18] MEDS ORDERED: OxyCODONE HCL/ACETAMINOPHEN 5-325 MG TABLET PO ONE (11:15)
[2018-06-18 11:33] LABS: BASOPHILS % (AUTO) 0.4 % (0.0-2.0); EOSINOPHILS % (AUTO) 14.1 % (1.0-6.0); HEMATOCRIT 37.3 % (41-53); HEMOGLOBIN 12.2 g/dL (13.5-17.5); LYMPHOCYTES # (AUTO) 0.4 K/uL (1.0-4.8); LYMPHOCYTES % (AUTO) 9.3 % (22.0-44.0); MEAN CORPUSCULAR HEMOGLOBIN 27.3 pg (26.0-34.0); MEAN CORPUSCULAR HGB CONC 32.8 G/dL (31.0-37.0); MEAN CORPUSCULAR VOLUME 83 fL (80-100); MONOCYTES # (AUTO) 0.4 K/uL (0.1-1.0); MONOCYTES % (AUTO) 7.9 % (2.0-9.0); NEUTROPHILS # (AUTO) 3.2 K/uL (1.8-7.7); NEUTROPHILS % (AUTO) 68.3 % (40.0-70.0); PLATELET COUNT (AUTO) 156 K/uL (150-450); RED BLOOD CELL COUNT(AUTO) 4.48 MIL/uL (4.50-5.90); RED CELL DISTRIBUTION WIDTH 17.7 % (11.5-14.5)
[2018-06-18 11:44] LABS: ANION GAP 8 mmol/L (8-16); CALCIUM, TOTAL 9.3 mg/dL (8.8-10.5); CARBON DIOXIDE 28 mmol/L (22-29); CHLORIDE 106 mmol/L (98-107); CREATININE 1.09 mg/dL (0.60-1.30); GLUCOSE,RANDOM 98 mg/dL (70-110); POTASSIUM 3.5 mmol/L (3.5-5.1); SODIUM SERUM 142 mmol/L (136-145); UREA NITROGEN, BLOOD 15 mg/dL (7-18)
[2018-06-18 11:45] LABS: AMPHET/METH SCREEN,URINE NEGATIVE (NEGATIVE); BARBITURATE SCREEN, URINE NEGATIVE (NEGATIVE); BENZODIAZEPINES SCREEN,URINE NEGATIVE (NEGATIVE); CANNABINOID SCREEN,URINE NEGATIVE (NEGATIVE); COCAINE SCREEN,URINE NEGATIVE (NEGATIVE); METHADONE SCREEN, URINE NEGATIVE (NEGATIVE); OPIATE SCREEN,URINE NEGATIVE (NEGATIVE)
[2018-06-18 11:46] LABS: PHENCYCLIDINE SCREEN,URINE NEGATIVE (NEGATIVE)
[2018-06-18 11:47] LABS: GLOMERULAR FILTR. RATE CALC > 60 mL/min (>60)
[2018-06-18 11:53] LABS: APPEARANCE,URINE CLEAR (CLEAR); BILIRUBIN,URINE NEGATIVE (NEGATIVE); GLUCOSE, URINE (UA) NEGATIVE (NEGATIVE); KETONES,URINE NEGATIVE (NEGATIVE); LEUKOCYTE ESTERASE ,URINE NEGATIVE (NEGATIVE); NITRATE,URINE NEGATIVE (NEGATIVE); OCCULT BLOOD,URINE NEGATIVE (NEGATIVE); PROTEIN,URINE SEE CONFIRM (NEGATIVE)
[2018-06-18 11:54] LABS: B-TYPE NATRIURETIC PEPTIDE 486 pg/mL (0-100)
[2018-06-18 12:08] LABS: SULFOSALICYLIC ACID,URINE 1+ (Negative)
[2018-06-18 12:09] LABS: ALANINE AMINOTRANSFERASE 37 U/L (12-78); ALBUMIN 3.1 g/dL (3.4-5.0); ALKALINE PHOSPHATASE 108 U/L (46-116); ASPARTATE AMINOTRANSFERASE 34 U/L (15-37); BILIRUBIN,TOTAL 0.5 mg/dL (0.1-1.0); CREATINE KINASE, TOTAL ONLY 449 U/L (39-308); TOTAL PROTEIN, SERUM 7.2 g/dL (6.4-8.2)
[2018-06-18 12:11] LABS: BACTERIA,URINE None Seen /HPF (None Seen); RBC,URINE 0-2 /HPF (0-2); SQUAMOUS EPITHELIAL CELL,UR Few /LPF (None Seen); WBC,URINE None Seen /HPF (0-5)
[2018-06-18 14:24] VITALS: BP 160/100
== END 2018-06-18 14:53 | disposition home or self-care (01) ==
LOC: EMS 09:35
DX: G89.29 Other chronic pain (principal); M54.5 Low back pain; R05 Cough; E78.00 Pure hypercholesterolemia, unspecified; I10 Essential (primary) hypertension; F31.9 Bipolar disorder, unspecified; Z79.899 Other long term (current) drug therapy; Z91.013 Allergy to seafood
CPT/HCPCS: 93005

== ENCOUNTER 2018-07-25 16:23 | Emergency (ER) | payer MEDICARE, MEDICAID ==
[~2018-07-25] VITALS: Ht 165.1 cm; Wt 55.9 kg
[2018-07-25 18:58] LABS: BASOPHILS % (AUTO) 0.2 % (0.0-2.0); EOSINOPHILS % (AUTO) 1.1 % (1.0-6.0); HEMATOCRIT 35.4 % (41-53); HEMOGLOBIN 11.6 g/dL (13.5-17.5); LYMPHOCYTES # (AUTO) 0.3 K/uL (1.0-4.8); LYMPHOCYTES % (AUTO) 4.9 % (22.0-44.0); MEAN CORPUSCULAR HEMOGLOBIN 27.6 pg (26.0-34.0); MEAN CORPUSCULAR HGB CONC 32.9 G/dL (31.0-37.0); MEAN CORPUSCULAR VOLUME 84 fL (80-100); MONOCYTES # (AUTO) 0.4 K/uL (0.1-1.0); NEUTROPHILS # (AUTO) 5.4 K/uL (1.8-7.7); PLATELET COUNT (AUTO) 223 K/uL (150-450); RED BLOOD CELL COUNT(AUTO) 4.21 MIL/uL (4.50-5.90); RED CELL DISTRIBUTION WIDTH 15.6 % (11.5-14.5)
[2018-07-25 18:59] LABS: NEUTROPHILS % (AUTO) 87.8 % (40.0-70.0)
[2018-07-25 19:13] LABS: CALCIUM, TOTAL 9.3 mg/dL (8.8-10.5); CREATININE 1.47 mg/dL (0.60-1.30); POTASSIUM 3.3 mmol/L (3.5-5.1)
[2018-07-25 19:16] LABS: ALBUMIN 2.9 g/dL (3.4-5.0); BILIRUBIN,TOTAL 0.7 mg/dL (0.1-1.0); TOTAL PROTEIN, SERUM 8.5 g/dL (6.4-8.2)
[2018-07-25 19:45] LABS: APPEARANCE,URINE CLEAR (CLEAR); GLUCOSE, URINE (UA) NEGATIVE (NEGATIVE); KETONES,URINE NEGATIVE (NEGATIVE); LEUKOCYTE ESTERASE ,URINE NEGATIVE (NEGATIVE); NITRATE,URINE NEGATIVE (NEGATIVE); OCCULT BLOOD,URINE TRACE (NEGATIVE); PROTEIN,URINE POS 1+ (NEGATIVE)
[2018-07-25 19:46] LABS: BILIRUBIN,URINE PRELIM. POSITIVE (NEGATIVE)
[2018-07-25 19:59] LABS: BACTERIA,URINE None Seen /HPF (None Seen); RBC,URINE 0-2 /HPF (0-2); WBC,URINE 0-2 /HPF (0-5)
[2018-07-25 20:00] LABS: SQUAMOUS EPITHELIAL CELL,UR Rare /LPF (None Seen)
[2018-07-25] MEDS ORDERED: ACETAMINOPHEN 325 MG TABLET PO ONE (22:15)
[2018-07-25 22:56] VITALS: BP 123/76
[2018-07-26] MEDS ORDERED: PROZ10 PO (07:46)
== END 2018-07-25 23:00 | disposition home or self-care (01) ==
LOC: EMS 16:23
DX: M54.2 Cervicalgia (principal); I11.0 Hypertensive heart disease with heart failure; I50.9 Heart failure, unspecified; E78.00 Pure hypercholesterolemia, unspecified; Z91.013 Allergy to seafood; Z79.82 Long term (current) use of aspirin; Z79.899 Other long term (current) drug therapy
CPT/HCPCS: 72125; 73502

== ENCOUNTER 2018-07-26 07:22 | Emergency (ER) | payer MEDICARE, MEDICAID ==
[~2018-07-26] VITALS: Ht 160 cm; Wt 59.1 kg
[2018-07-26] MEDS ORDERED: TraMADol HCL 50 MG TABLET PO ONE (07:45)
[2018-07-26] MEDS ORDERED: PROZ10 PO (07:46)
[2018-07-26 08:59] VITALS: BP 122/70
== END 2018-07-26 09:00 | disposition home or self-care (01) ==
LOC: EMS 07:25
DX: S16.1XXA Strain of muscle, fascia and tendon at neck level, initial encounter (principal); I11.0 Hypertensive heart disease with heart failure; I50.9 Heart failure, unspecified; I25.10 Atherosclerotic heart disease of native coronary artery without angina pectoris; E78.00 Pure hypercholesterolemia, unspecified; X58.XXXA Exposure to other specified factors, initial encounter; Y93.89 Activity, other specified; Y92.89 Other specified places as the place of occurrence of the external cause; Y99.8 Other external cause status
CPT/HCPCS: 93970

== ENCOUNTER 2018-12-11 14:21 | Inpatient (IN) | payer MEDICARE, MEDICAID ==
[~2018-12-11] VITALS: Ht 167.6 cm; Wt 62.7 kg
[~2018-12-11 14:21] MED LIST changes: -AMLO-511 PO; +AMLO5TAB9 PO; -ATOR40TA28 PO; +PROZ10 PO
[2018-12-11 15:15] LABS: BASOPHILS % (AUTO) 0.4 % (0.0-2.0); EOSINOPHILS % (AUTO) 6.3 % (1.0-6.0); HEMATOCRIT 32.4 % (41-53); HEMOGLOBIN 10.6 g/dL (13.5-17.5); LYMPHOCYTES # (AUTO) 0.4 K/uL (1.0-4.8); LYMPHOCYTES % (AUTO) 8.5 % (22.0-44.0); MEAN CORPUSCULAR HEMOGLOBIN 29.5 pg (26.0-34.0); MEAN CORPUSCULAR HGB CONC 32.7 G/dL (31.0-37.0); MEAN CORPUSCULAR VOLUME 90 fL (80-100); MONOCYTES # (AUTO) 0.3 K/uL (0.1-1.0); MONOCYTES % (AUTO) 6.2 % (2.0-9.0); NEUTROPHILS # (AUTO) 3.6 K/uL (1.8-7.7); NEUTROPHILS % (AUTO) 78.6 % (40.0-70.0); PLATELET COUNT (AUTO) 142 K/uL (150-450); RED BLOOD CELL COUNT(AUTO) 3.59 MIL/uL (4.50-5.90); RED CELL DISTRIBUTION WIDTH 15.4 % (11.5-14.5)
[2018-12-11 15:28] LABS: ANION GAP 14 mmol/L (8-16); CARBON DIOXIDE 23 mmol/L (22-29); CHLORIDE 104 mmol/L (98-107); CREATININE 2.32 mg/dL (0.60-1.30); GLOMERULAR FILTR. RATE CALC 27 mL/min (>60); GLUCOSE,RANDOM 122 mg/dL (70-110); SODIUM SERUM 141 mmol/L (136-145); UREA NITROGEN, BLOOD 56 mg/dL (7-18)
[2018-12-11 15:34] LABS: ALANINE AMINOTRANSFERASE 19 U/L (12-78); ALBUMIN 3.9 g/dL (3.4-5.0); ALKALINE PHOSPHATASE 98 U/L (46-116); ASPARTATE AMINOTRANSFERASE 26 U/L (15-37); BILIRUBIN,TOTAL 0.5 mg/dL (0.1-1.0); TOTAL PROTEIN, SERUM 8.6 g/dL (6.4-8.2)
[2018-12-11 15:56] LABS: FREE T4 (FREE THYROXINE) 0.89 ng/dL (0.76-1.46); THYROID STIMULATING HORMONE 1.61 uIU/mL (0.36-3.74)
[2018-12-11 17:06] LABS: APPEARANCE,URINE CLEAR (CLEAR); BILIRUBIN,URINE NEGATIVE (NEGATIVE); GLUCOSE, URINE (UA) NEGATIVE (NEGATIVE); KETONES,URINE 15 mg/dL (NEGATIVE); LEUKOCYTE ESTERASE ,URINE NEGATIVE (NEGATIVE); NITRATE,URINE NEGATIVE (NEGATIVE); OCCULT BLOOD,URINE NEGATIVE (NEGATIVE); PROTEIN,URINE TRACE (NEGATIVE)
[2018-12-11 17:07] LABS: AMPHET/METH SCREEN,URINE NEGATIVE (NEGATIVE); BARBITURATE SCREEN, URINE NEGATIVE (NEGATIVE); BENZODIAZEPINES SCREEN,URINE NEGATIVE (NEGATIVE); CANNABINOID SCREEN,URINE NEGATIVE (NEGATIVE); COCAINE SCREEN,URINE NEGATIVE (NEGATIVE); METHADONE SCREEN, URINE NEGATIVE (NEGATIVE); OPIATE SCREEN,URINE NEGATIVE (NEGATIVE)
[2018-12-11 17:08] LABS: PHENCYCLIDINE SCREEN,URINE NEGATIVE (NEGATIVE)
[2018-12-11] MEDS ORDERED: LORazepam 1 MG TABLET PO ONE (17:15)
[2018-12-12] MEDS ORDERED: ZOLPIDEM TARTRATE 10 MG TABLET PO PRN (00:15)
[2018-12-12 00:40] VITALS: BP 154/97
[2018-12-12] MEDS ORDERED: PNEUMOCOCCAL VACCINE POLYVALENT 0.5 ML VIAL [PPSV23] IM ONE (03:30)
[2018-12-12] MEDS ORDERED: DOCUSATE SODIUM 100 MG CAPSULE PO PRN (08:00)
[2018-12-12] MEDS ORDERED: LOPERAMIDE HCL 2 MG CAPSULE PO PRN (08:00)
[2018-12-12] MEDS ORDERED: CloNIDine HCL 0.1 MG TABLET PO PRN (08:00)
[2018-12-12] MEDS ORDERED: ONDANSETRON HCL 4 MG TABLET PO PRN (08:00)
[2018-12-12] MEDS ORDERED: NICOTINE 14 MG/24 HOUR PATCH TD PRN (08:00)
[2018-12-12] MEDS: METOPROLOL SUCCINATE 25 MG ER TABLET PO SCH (08:26)
[2018-12-12] MEDS: AmLODIPine BESYLATE 5 MG TABLET PO SCH (08:27)
[2018-12-12] MEDS: LEVOTHYROXINE SODIUM 75 MCG TABLET PO SCH (08:27)
[2018-12-12] MEDS: ASPIRIN 81 MG EC TABLET PO SCH (08:27)
[2018-12-12] MEDS ORDERED: FUROSEMIDE 20 MG TABLET PO SCH (09:00)
[2018-12-12 10:36] VITALS: BP 154/84
[2018-12-12] MEDS: DENTURE ADHESIVE 68 GM CREAM DT PRN (10:51)
[2018-12-12] MEDS: IBUPROFEN 400 MG TABLET PO PRN ×2 (13:34→13:47)
[2018-12-12] MEDS: FLUoxetine HCL 10 MG CAPSULE PO SCH (14:45)
[2018-12-12] MEDS: OLANZapine 5 MG RAPDIS TABLET PO PRN (16:29)
[2018-12-12 16:47] VITALS: BP 137/78
[2018-12-12] MEDS: OLANZapine 5 MG TABLET PO SCH (20:24)
[2018-12-13 00:55] VITALS: BP 156/86
[2018-12-13] MEDS: LORazepam 2 MG TABLET PO PRN (00:57)
[2018-12-13] MEDS: LEVOTHYROXINE SODIUM 75 MCG TABLET PO SCH (06:40)
[2018-12-13 06:47] LABS: CHOL/HDL RATIO 2.6 (4.2-7.3)
[2018-12-13] MEDS ORDERED: LEVOTHYROXINE SODIUM 75 MCG TABLET PO SCH (07:00)
[2018-12-13 08:51] VITALS: BP 147/100
[2018-12-13] MEDS: ASPIRIN 81 MG EC TABLET PO SCH (09:23)
[2018-12-13] MEDS: AmLODIPine BESYLATE 5 MG TABLET PO SCH (09:23)
[2018-12-13] MEDS: FLUoxetine HCL 10 MG CAPSULE PO SCH (09:24)
[2018-12-13] MEDS: METOPROLOL SUCCINATE 25 MG ER TABLET PO SCH (09:24)
[2018-12-13] MEDS: DENTURE ADHESIVE 68 GM CREAM DT PRN (13:24)
[2018-12-13 18:18] VITALS: BP 158/82
[2018-12-13] MEDS: OLANZapine 5 MG TABLET PO SCH (20:38)
[2018-12-13] MEDS: IBUPROFEN 400 MG TABLET PO PRN (23:06)
[2018-12-14 02:20] VITALS: BP 144/84
[2018-12-14] MEDS: LEVOTHYROXINE SODIUM 75 MCG TABLET PO SCH (06:58)
[2018-12-14 07:51] LABS: CALCIUM, TOTAL 8.8 mg/dL (8.8-10.5); CREATININE 1.34 mg/dL (0.60-1.30); POTASSIUM 3.8 mmol/L (3.5-5.1)
[2018-12-14 09:00] VITALS: BP 174/108
[2018-12-14] MEDS: AmLODIPine BESYLATE 5 MG TABLET PO SCH (09:26)
[2018-12-14] MEDS: ASPIRIN 81 MG EC TABLET PO SCH (09:26)
[2018-12-14] MEDS: FLUoxetine HCL 10 MG CAPSULE PO SCH (09:26)
[2018-12-14] MEDS: METOPROLOL SUCCINATE 25 MG ER TABLET PO SCH (09:26)
[2018-12-14] MEDS ORDERED: AmLODIPine BESYLATE 5 MG TABLET PO ONE (11:30)
[2018-12-14 12:26] VITALS: BP 114/54
[2018-12-14 18:02] VITALS: BP 124/70
[2018-12-14] MEDS: OLANZapine 5 MG TABLET PO SCH (20:22)
[2018-12-15 00:59] VITALS: BP 147/67
[2018-12-15 02:45] VITALS: BP 142/58
[2018-12-15] MEDS: IBUPROFEN 400 MG TABLET PO PRN (02:48)
[2018-12-15] MEDS: GuaiFENesin/D-METHORPHAN [SUGAR-FREE] 200-20MG/10 ML SYRUP UDCUP PO PRN (02:55)
[2018-12-15] MEDS: MAGNESIUM HYDROXIDE SUSPENSION 30 ML UDCUP PO PRN (04:00)
[2018-12-15] MEDS: LEVOTHYROXINE SODIUM 75 MCG TABLET PO SCH (06:44)
[2018-12-15 09:03] VITALS: BP 138/67
[2018-12-15] MEDS: ASPIRIN 81 MG EC TABLET PO SCH (09:13)
[2018-12-15] MEDS: FLUoxetine HCL 10 MG CAPSULE PO SCH (09:14)
[2018-12-15] MEDS: AmLODIPine BESYLATE 10 MG TABLET PO SCH (09:14)
[2018-12-15] MEDS: METOPROLOL SUCCINATE 25 MG ER TABLET PO SCH (09:14)
[2018-12-15] MEDS ORDERED: LORazepam 2 MG/ML VIAL IM ONE (18:00)
[2018-12-15] MEDS ORDERED: HALOPERIDOL LACTATE 5 MG/ML VIAL IM ONE (18:00)
[2018-12-15 18:02] VITALS: BP 129/67
[2018-12-15] MEDS: OLANZapine 5 MG TABLET PO SCH (20:37)
[2018-12-15 22:07] VITALS: BP 159/91
[2018-12-16] VITALS (7 sets, daily range): BP systolic 130–156; BP diastolic 74–92
[2018-12-16] MEDS: IBUPROFEN 400 MG TABLET PO PRN ×2 (03:56→23:03)
[2018-12-16 04:23] LABS: CALCIUM, TOTAL 9.5 mg/dL (8.8-10.5); CREATININE 1.27 mg/dL (0.60-1.30); POTASSIUM 4.4 mmol/L (3.5-5.1)
[2018-12-16] MEDS: LEVOTHYROXINE SODIUM 75 MCG TABLET PO SCH (06:39)
[2018-12-16] MEDS: FLUoxetine HCL 10 MG CAPSULE PO SCH (09:00)
[2018-12-16] MEDS: AmLODIPine BESYLATE 10 MG TABLET PO SCH (09:00)
[2018-12-16] MEDS: METOPROLOL SUCCINATE 25 MG ER TABLET PO SCH (09:00)
[2018-12-16] MEDS: ASPIRIN 81 MG EC TABLET PO SCH (09:00)
[2018-12-16] MEDS: ACETAMINOPHEN 325 MG TABLET PO PRN (09:00)
[2018-12-16] MEDS: OLANZapine 5 MG TABLET PO SCH ×2 (11:15→20:46)
[2018-12-16] MEDS: LORazepam 2 MG TABLET PO PRN (11:50)
[2018-12-16] MEDS: OLANZapine 5 MG RAPDIS TABLET PO PRN (11:54)
[2018-12-17] MEDS: ACETAMINOPHEN 325 MG TABLET PO PRN (03:12)
[2018-12-17] MEDS: LEVOTHYROXINE SODIUM 75 MCG TABLET PO SCH (06:48)
[2018-12-17 08:00] VITALS: BP 143/93
[2018-12-17] MEDS: METOPROLOL SUCCINATE 25 MG ER TABLET PO SCH (09:09)
[2018-12-17] MEDS: OLANZapine 5 MG TABLET PO SCH ×2 (09:09→20:56)
[2018-12-17] MEDS: FLUoxetine HCL 10 MG CAPSULE PO SCH (09:09)
[2018-12-17] MEDS: ASPIRIN 81 MG EC TABLET PO SCH (09:10)
[2018-12-17] MEDS: AmLODIPine BESYLATE 10 MG TABLET PO SCH (09:10)
[2018-12-17] MEDS: FUROSEMIDE 20 MG TABLET PO SCH (09:11)
[2018-12-17 16:38] VITALS: BP 162/73
[2018-12-18] MEDS: LORazepam 2 MG TABLET PO PRN ×2 (03:07→09:03)
[2018-12-18] MEDS: LEVOTHYROXINE SODIUM 75 MCG TABLET PO SCH (06:58)
[2018-12-18] MEDS: AmLODIPine BESYLATE 10 MG TABLET PO SCH (09:03)
[2018-12-18] MEDS: FLUoxetine HCL 10 MG CAPSULE PO SCH (09:03)
[2018-12-18] MEDS: METOPROLOL SUCCINATE 25 MG ER TABLET PO SCH (09:03)
[2018-12-18] MEDS: OLANZapine 5 MG TABLET PO SCH ×2 (09:03→20:33)
[2018-12-18] MEDS: ASPIRIN 81 MG EC TABLET PO SCH (09:03)
[2018-12-18 09:05] VITALS: BP 126/70
[2018-12-18] MEDS: IBUPROFEN 400 MG TABLET PO PRN (09:08)
[2018-12-18 09:39] VITALS: BP 126/70
[2018-12-18 21:03] VITALS: BP 109/67
[2018-12-19 01:40] VITALS: BP 136/68
[2018-12-19] MEDS: LEVOTHYROXINE SODIUM 75 MCG TABLET PO SCH (06:51)
[2018-12-19 08:00] VITALS: BP 115/76
[2018-12-19] MEDS: FUROSEMIDE 20 MG TABLET PO SCH (08:52)
[2018-12-19] MEDS: AmLODIPine BESYLATE 10 MG TABLET PO SCH (08:52)
[2018-12-19] MEDS: FLUoxetine HCL 10 MG CAPSULE PO SCH (08:52)
[2018-12-19] MEDS: ASPIRIN 81 MG EC TABLET PO SCH (08:52)
[2018-12-19] MEDS: METOPROLOL SUCCINATE 25 MG ER TABLET PO SCH (08:53)
[2018-12-19] MEDS: OLANZapine 5 MG TABLET PO SCH ×2 (08:53→21:17)
[2018-12-19 17:14] VITALS: BP 129/74
[2018-12-19] MEDS: LORazepam 2 MG TABLET PO PRN (22:30)
[2018-12-20 03:34] VITALS: BP 142/90
[2018-12-20] MEDS: IBUPROFEN 400 MG TABLET PO PRN (03:34)
[2018-12-20] MEDS: LEVOTHYROXINE SODIUM 75 MCG TABLET PO SCH (06:54)
[2018-12-20] MEDS: METOPROLOL SUCCINATE 25 MG ER TABLET PO SCH (11:06)
[2018-12-20] MEDS: FLUoxetine HCL 10 MG CAPSULE PO SCH (11:06)
[2018-12-20] MEDS: LORazepam 2 MG TABLET PO PRN (11:06)
[2018-12-20] MEDS: OLANZapine 5 MG TABLET PO SCH ×2 (11:07→20:28)
[2018-12-20] MEDS: AmLODIPine BESYLATE 10 MG TABLET PO SCH (11:07)
[2018-12-20] MEDS: ASPIRIN 81 MG EC TABLET PO SCH (11:07)
[2018-12-20] MEDS: DIVALPROEX SODIUM 250 MG ER TABLET PO SCH ×2 (11:08→16:59)
[2018-12-20 11:23] VITALS: BP 120/68
[2018-12-20 18:55] VITALS: BP 116/75
[2018-12-20] MEDS: TraZODone HCL 50 MG TABLET PO SCH (20:28)
[2018-12-20] MEDS: GuaiFENesin/D-METHORPHAN [SUGAR-FREE] 200-20MG/10 ML SYRUP UDCUP PO PRN (22:57)
[2018-12-21 04:14] VITALS: BP 145/75
[2018-12-21] MEDS: IBUPROFEN 400 MG TABLET PO PRN (05:44)
[2018-12-21 06:44] VITALS: BP 141/71
[2018-12-21] MEDS: LEVOTHYROXINE SODIUM 75 MCG TABLET PO SCH (06:50)
[2018-12-21 08:00] VITALS: BP 128/72
[2018-12-21] MEDS: FLUoxetine HCL 10 MG CAPSULE PO SCH (08:38)
[2018-12-21] MEDS: DENTURE ADHESIVE 68 GM CREAM DT PRN (08:38)
[2018-12-21] MEDS: DIVALPROEX SODIUM 250 MG ER TABLET PO SCH ×2 (08:41→16:46)
[2018-12-21] MEDS: OLANZapine 5 MG RAPDIS TABLET PO PRN (08:41)
[2018-12-21] MEDS: ASPIRIN 81 MG EC TABLET PO SCH (08:41)
[2018-12-21] MEDS: METOPROLOL SUCCINATE 25 MG ER TABLET PO SCH (08:41)
[2018-12-21] MEDS: AmLODIPine BESYLATE 10 MG TABLET PO SCH (08:41)
[2018-12-21] MEDS: FUROSEMIDE 20 MG TABLET PO SCH (08:41)
[2018-12-21] MEDS: LORazepam 2 MG TABLET PO PRN (08:41)
[2018-12-21] MEDS: OLANZapine 5 MG TABLET PO SCH ×2 (08:41→20:48)
[2018-12-21 18:28] VITALS: BP 127/77
[2018-12-21] MEDS: TraZODone HCL 50 MG TABLET PO SCH (20:48)
[2018-12-22 00:01] VITALS: BP 121/65
[2018-12-22] MEDS: ACETAMINOPHEN 325 MG TABLET PO PRN (00:08)
[2018-12-22 00:20] VITALS: BP 106/65
[2018-12-22 01:10] VITALS: BP 119/60
[2018-12-22] MEDS: LORazepam 2 MG TABLET PO PRN (01:41)
[2018-12-22 06:45] LABS: CALCIUM, TOTAL 9.1 mg/dL (8.8-10.5); CREATININE 1.53 mg/dL (0.60-1.30); POTASSIUM 4.2 mmol/L (3.5-5.1)
[2018-12-22] MEDS: LEVOTHYROXINE SODIUM 75 MCG TABLET PO SCH (06:47)
[2018-12-22] MEDS: AmLODIPine BESYLATE 10 MG TABLET PO SCH (08:16)
[2018-12-22] MEDS: DIVALPROEX SODIUM 250 MG ER TABLET PO SCH ×2 (08:16→16:19)
[2018-12-22] MEDS: OLANZapine 5 MG TABLET PO SCH ×2 (08:16→20:33)
[2018-12-22] MEDS: FLUoxetine HCL 10 MG CAPSULE PO SCH (08:16)
[2018-12-22] MEDS: ASPIRIN 81 MG EC TABLET PO SCH (08:16)
[2018-12-22] MEDS: DENTURE ADHESIVE 68 GM CREAM DT PRN (08:18)
[2018-12-22] MEDS: METOPROLOL SUCCINATE 25 MG ER TABLET PO SCH (08:18)
[2018-12-22 08:52] VITALS: BP 158/86
[2018-12-22 16:06] VITALS: BP 51/68
[2018-12-22] MEDS: TraZODone HCL 50 MG TABLET PO SCH (20:33)
[2018-12-23 03:19] VITALS: BP 139/66
[2018-12-23] MEDS: IBUPROFEN 400 MG TABLET PO PRN (03:25)
[2018-12-23 04:20] VITALS: BP 135/65
[2018-12-23] MEDS: LEVOTHYROXINE SODIUM 75 MCG TABLET PO SCH (06:42)
[2018-12-23] MEDS: ASPIRIN 81 MG EC TABLET PO SCH (08:39)
[2018-12-23] MEDS: FUROSEMIDE 20 MG TABLET PO SCH (08:39)
[2018-12-23] MEDS: OLANZapine 5 MG TABLET PO SCH ×2 (08:39→20:11)
[2018-12-23] MEDS: DIVALPROEX SODIUM 250 MG ER TABLET PO SCH ×2 (08:39→16:18)
[2018-12-23] MEDS: AmLODIPine BESYLATE 10 MG TABLET PO SCH (08:39)
[2018-12-23] MEDS: METOPROLOL SUCCINATE 25 MG ER TABLET PO SCH (08:39)
[2018-12-23] MEDS: FLUoxetine HCL 10 MG CAPSULE PO SCH (08:40)
[2018-12-23] MEDS: MAGNESIUM HYDROXIDE SUSPENSION 30 ML UDCUP PO PRN (08:42)
[2018-12-23 09:24] VITALS: BP 136/93
[2018-12-23 16:36] VITALS: BP 123/79
[2018-12-23] MEDS: TraZODone HCL 50 MG TABLET PO SCH (20:11)
[2018-12-24 00:07] VITALS: BP 122/72
[2018-12-24] MEDS: LORazepam 2 MG TABLET PO PRN (00:08)
[2018-12-24] MEDS: LEVOTHYROXINE SODIUM 75 MCG TABLET PO SCH (06:48)
[2018-12-24] MEDS: ASPIRIN 81 MG EC TABLET PO SCH (08:13)
[2018-12-24] MEDS: OLANZapine 5 MG TABLET PO SCH ×2 (08:13→20:25)
[2018-12-24] MEDS: AmLODIPine BESYLATE 10 MG TABLET PO SCH (08:13)
[2018-12-24] MEDS: DIVALPROEX SODIUM 250 MG ER TABLET PO SCH ×2 (08:14→16:24)
[2018-12-24] MEDS: METOPROLOL SUCCINATE 25 MG ER TABLET PO SCH (08:14)
[2018-12-24] MEDS: GuaiFENesin/D-METHORPHAN [SUGAR-FREE] 200-20MG/10 ML SYRUP UDCUP PO PRN (08:15)
[2018-12-24] MEDS: FLUoxetine HCL 10 MG CAPSULE PO SCH (08:17)
[2018-12-24 09:29] VITALS: BP 122/76
[2018-12-24 17:10] VITALS: BP 131/66
[2018-12-24] MEDS: ACETAMINOPHEN 325 MG TABLET PO PRN (18:54)
[2018-12-24] MEDS: TraZODone HCL 50 MG TABLET PO SCH (20:25)
[2018-12-24 22:05] VITALS: BP 128/78
[2018-12-24] MEDS: METHYL SALICYLATE/MENTHOL 85 GM CREAM TP PRN (22:05)
[2018-12-25] MEDS: METHYL SALICYLATE/MENTHOL 85 GM CREAM TP PRN ×3 (03:05→03:11)
[2018-12-25] MEDS: LORazepam 2 MG TABLET PO PRN (03:56)
[2018-12-25 04:06] VITALS: BP 124/74
[2018-12-25] MEDS: LEVOTHYROXINE SODIUM 75 MCG TABLET PO SCH (06:53)
[2018-12-25 08:54] VITALS: BP 128/68
[2018-12-25] MEDS: FLUoxetine HCL 10 MG CAPSULE PO SCH (08:55)
[2018-12-25] MEDS: DIVALPROEX SODIUM 250 MG ER TABLET PO SCH ×3 (08:56→17:38)
[2018-12-25] MEDS: AmLODIPine BESYLATE 10 MG TABLET PO SCH (08:56)
[2018-12-25] MEDS: OLANZapine 5 MG TABLET PO SCH ×2 (08:56→20:36)
[2018-12-25] MEDS: FUROSEMIDE 20 MG TABLET PO SCH (08:56)
[2018-12-25] MEDS: METOPROLOL SUCCINATE 25 MG ER TABLET PO SCH (08:56)
[2018-12-25] MEDS: ASPIRIN 81 MG EC TABLET PO SCH (08:57)
[2018-12-25] MEDS: TraZODone HCL 50 MG TABLET PO SCH (20:36)
[2018-12-25 22:00] VITALS: BP 138/70
[2018-12-26 02:25] VITALS: BP 148/79
[2018-12-26] MEDS: DENTURE ADHESIVE 68 GM CREAM DT PRN (02:30)
[2018-12-26] MEDS: METHYL SALICYLATE/MENTHOL 85 GM CREAM TP PRN ×2 (02:30→22:00)
[2018-12-26] MEDS: LEVOTHYROXINE SODIUM 75 MCG TABLET PO SCH (06:42)
[2018-12-26 08:17] VITALS: BP 136/69
[2018-12-26] MEDS: DIVALPROEX SODIUM 250 MG ER TABLET PO SCH ×2 (09:15→16:46)
[2018-12-26] MEDS: METOPROLOL SUCCINATE 25 MG ER TABLET PO SCH (09:16)
[2018-12-26] MEDS: AmLODIPine BESYLATE 10 MG TABLET PO SCH (09:16)
[2018-12-26] MEDS: ASPIRIN 81 MG EC TABLET PO SCH (09:16)
[2018-12-26] MEDS: FLUoxetine HCL 10 MG CAPSULE PO SCH (09:17)
[2018-12-26] MEDS: OLANZapine 5 MG TABLET PO SCH ×2 (09:17→20:48)
[2018-12-26 16:00] VITALS: BP 128/93
[2018-12-26] MEDS: TraZODone HCL 50 MG TABLET PO SCH (20:48)
[2018-12-26 22:19] VITALS: BP 129/80
[2018-12-26] MEDS: IBUPROFEN 400 MG TABLET PO PRN (22:26)
[2018-12-26] MEDS: LORazepam 2 MG TABLET PO PRN (23:38)
[2018-12-27 00:18] VITALS: BP 115/61
[2018-12-27 05:46] LABS: BASOPHILS % (AUTO) 0.4 % (0.0-2.0); EOSINOPHILS % (AUTO) 10.5 % (1.0-6.0); HEMATOCRIT 29.8 % (41-53); HEMOGLOBIN 10.1 g/dL (13.5-17.5); LYMPHOCYTES # (AUTO) 0.6 K/uL (1.0-4.8); LYMPHOCYTES % (AUTO) 16.6 % (22.0-44.0); MEAN CORPUSCULAR HEMOGLOBIN 29.8 pg (26.0-34.0); MEAN CORPUSCULAR VOLUME 88 fL (80-100); MONOCYTES # (AUTO) 0.4 K/uL (0.1-1.0); MONOCYTES % (AUTO) 10.2 % (2.0-9.0); NEUTROPHILS # (AUTO) 2.4 K/uL (1.8-7.7); NEUTROPHILS % (AUTO) 62.3 % (40.0-70.0); PLATELET COUNT (AUTO) 127 K/uL (150-450); RED BLOOD CELL COUNT(AUTO) 3.41 MIL/uL (4.50-5.90); RED CELL DISTRIBUTION WIDTH 14.8 % (11.5-14.5)
[2018-12-27 06:07] LABS: CALCIUM, TOTAL 8.3 mg/dL (8.8-10.5); CREATININE 1.59 mg/dL (0.60-1.30)
[2018-12-27] MEDS: LEVOTHYROXINE SODIUM 75 MCG TABLET PO SCH (06:43)
[2018-12-27] MEDS: FLUoxetine HCL 10 MG CAPSULE PO SCH (09:28)
[2018-12-27] MEDS: AmLODIPine BESYLATE 10 MG TABLET PO SCH (09:28)
[2018-12-27] MEDS: ASPIRIN 81 MG EC TABLET PO SCH (09:29)
[2018-12-27] MEDS: FUROSEMIDE 20 MG TABLET PO SCH (09:29)
[2018-12-27] MEDS: DIVALPROEX SODIUM 250 MG ER TABLET PO SCH ×2 (09:30→17:01)
[2018-12-27] MEDS: METOPROLOL SUCCINATE 25 MG ER TABLET PO SCH (09:31)
[2018-12-27] MEDS: OLANZapine 5 MG TABLET PO SCH ×2 (09:31→20:20)
[2018-12-27 11:09] VITALS: BP 114/76
[2018-12-27] MEDS: GuaiFENesin/D-METHORPHAN [SUGAR-FREE] 200-20MG/10 ML SYRUP UDCUP PO PRN (14:34)
[2018-12-27 16:46] VITALS: BP 141/70
[2018-12-27] MEDS: TraZODone HCL 50 MG TABLET PO SCH (20:20)
[2018-12-28 00:05] VITALS: BP 137/67
[2018-12-28] MEDS: LORazepam 2 MG TABLET PO PRN ×2 (00:07→22:39)
[2018-12-28 06:38] VITALS: BP 145/77
[2018-12-28] MEDS: LEVOTHYROXINE SODIUM 75 MCG TABLET PO SCH (06:51)
[2018-12-28] MEDS: OLANZapine 5 MG TABLET PO SCH ×2 (08:08→20:22)
[2018-12-28] MEDS: AmLODIPine BESYLATE 10 MG TABLET PO SCH (08:08)
[2018-12-28] MEDS: ASPIRIN 81 MG EC TABLET PO SCH (08:08)
[2018-12-28] MEDS: DIVALPROEX SODIUM 250 MG ER TABLET PO SCH ×2 (08:08→18:00)
[2018-12-28] MEDS: METOPROLOL SUCCINATE 25 MG ER TABLET PO SCH (08:09)
[2018-12-28] MEDS: FLUoxetine HCL 10 MG CAPSULE PO SCH (08:10)
[2018-12-28] MEDS: AZITHROMYCIN 250 MG TABLET PO SCH (08:10)
[2018-12-28 10:30] VITALS: BP 127/70
[2018-12-28 16:08] VITALS: BP 118/60
[2018-12-28] MEDS: TraZODone HCL 50 MG TABLET PO SCH (20:22)
[2018-12-28] MEDS: METHYL SALICYLATE/MENTHOL 85 GM CREAM TP PRN (21:00)
[2018-12-28] MEDS: DENTURE ADHESIVE 68 GM CREAM DT PRN (21:00)
[2018-12-29 02:25] VITALS: BP 143/79
[2018-12-29] MEDS: LORazepam 2 MG TABLET PO PRN (02:45)
[2018-12-29] MEDS: LEVOTHYROXINE SODIUM 75 MCG TABLET PO SCH (06:51)
[2018-12-29 08:00] VITALS: BP 131/80
[2018-12-29] MEDS: ASPIRIN 81 MG EC TABLET PO SCH (09:46)
[2018-12-29] MEDS: OLANZapine 5 MG TABLET PO SCH ×2 (09:46→20:16)
[2018-12-29] MEDS: FUROSEMIDE 20 MG TABLET PO SCH (09:46)
[2018-12-29] MEDS: AmLODIPine BESYLATE 10 MG TABLET PO SCH (09:46)
[2018-12-29] MEDS: METOPROLOL SUCCINATE 25 MG ER TABLET PO SCH (09:46)
[2018-12-29] MEDS: DIVALPROEX SODIUM 250 MG ER TABLET PO SCH ×2 (09:47→16:09)
[2018-12-29] MEDS: FLUoxetine HCL 10 MG CAPSULE PO SCH (09:47)
[2018-12-29] MEDS: AZITHROMYCIN 250 MG TABLET PO SCH (09:47)
[2018-12-29 16:52] VITALS: BP 120/68
[2018-12-29] MEDS: TraZODone HCL 50 MG TABLET PO SCH (20:16)
[2018-12-29] MEDS: GuaiFENesin/D-METHORPHAN [SUGAR-FREE] 200-20MG/10 ML SYRUP UDCUP PO PRN (22:11)
[2018-12-30] MEDS: LORazepam 2 MG TABLET PO PRN (00:40)
[2018-12-30 06:28] LABS: CALCIUM, TOTAL 9.1 mg/dL (8.8-10.5); CREATININE 1.28 mg/dL (0.60-1.30); POTASSIUM 4.1 mmol/L (3.5-5.1)
[2018-12-30] MEDS: LEVOTHYROXINE SODIUM 75 MCG TABLET PO SCH (06:46)
[2018-12-30] MEDS: OLANZapine 5 MG TABLET PO SCH ×2 (09:13→20:42)
[2018-12-30] MEDS: METOPROLOL SUCCINATE 25 MG ER TABLET PO SCH ×2 (09:14→14:06)
[2018-12-30] MEDS: ASPIRIN 81 MG EC TABLET PO SCH (09:15)
[2018-12-30] MEDS: AmLODIPine BESYLATE 10 MG TABLET PO SCH ×2 (09:15→14:06)
[2018-12-30] MEDS: DIVALPROEX SODIUM 250 MG ER TABLET PO SCH ×2 (09:15→18:00)
[2018-12-30] MEDS: AZITHROMYCIN 250 MG TABLET PO SCH (09:16)
[2018-12-30] MEDS: FLUoxetine HCL 10 MG CAPSULE PO SCH (09:16)
[2018-12-30 09:17] VITALS: BP 110/56
[2018-12-30] MEDS: BENZOCAINE/MENTHOL LOZENGE PO PRN (14:43)
[2018-12-30 15:37] VITALS: BP 137/81
[2018-12-30 16:37] VITALS: BP 133/70
[2018-12-30] MEDS: TraZODone HCL 50 MG TABLET PO SCH (20:42)
[2018-12-30 23:56] VITALS: BP 150/79
[2018-12-31] MEDS: OLANZapine 5 MG RAPDIS TABLET PO PRN (00:04)
[2018-12-31 00:16] VITALS: BP 139/81
[2018-12-31] MEDS: BENZOCAINE/MENTHOL LOZENGE PO PRN (00:30)
[2018-12-31] MEDS: GuaiFENesin/D-METHORPHAN [SUGAR-FREE] 200-20MG/10 ML SYRUP UDCUP PO PRN ×2 (02:59→16:17)
[2018-12-31] MEDS: LEVOTHYROXINE SODIUM 75 MCG TABLET PO SCH (06:34)
[2018-12-31 06:57] LABS: MAGNESIUM 2.2 mg/dL (1.80-2.40); PHOSPHORUS 3.3 mg/dL (2.5-4.9)
[2018-12-31] MEDS: DIVALPROEX SODIUM 250 MG ER TABLET PO SCH ×2 (08:47→16:49)
[2018-12-31] MEDS: OLANZapine 5 MG TABLET PO SCH ×2 (08:47→20:19)
[2018-12-31] MEDS: ASPIRIN 81 MG EC TABLET PO SCH (08:48)
[2018-12-31] MEDS: FUROSEMIDE 20 MG TABLET PO SCH (08:48)
[2018-12-31] MEDS: AZITHROMYCIN 250 MG TABLET PO SCH (08:49)
[2018-12-31] MEDS: METOPROLOL SUCCINATE 25 MG ER TABLET PO SCH (08:49)
[2018-12-31] MEDS: FLUoxetine HCL 10 MG CAPSULE PO SCH (08:49)
[2018-12-31] MEDS: AmLODIPine BESYLATE 10 MG TABLET PO SCH (08:49)
[2018-12-31 13:24] VITALS: BP 151/80
[2018-12-31 16:20] VITALS: BP 147/78
[2018-12-31] MEDS: TraZODone HCL 50 MG TABLET PO SCH (20:19)
[2018-12-31] MEDS: LORazepam 1 MG TABLET PO PRN (23:37)
[2018-12-31 23:38] VITALS: BP 140/56
[2018-12-31] MEDS: IBUPROFEN 400 MG TABLET PO PRN (23:38)
[2019-01-01 00:10] VITALS: BP 140/56
[2019-01-01 08:00] VITALS: BP 154/77
[2019-01-01] MEDS: OLANZapine 5 MG TABLET PO SCH ×2 (08:50→20:11)
[2019-01-01] MEDS: LEVOTHYROXINE SODIUM 75 MCG TABLET PO SCH (08:50)
[2019-01-01] MEDS: AZITHROMYCIN 250 MG TABLET PO SCH (08:50)
[2019-01-01] MEDS: ASPIRIN 81 MG EC TABLET PO SCH (08:51)
[2019-01-01] MEDS: METOPROLOL SUCCINATE 25 MG ER TABLET PO SCH (08:51)
[2019-01-01] MEDS: AmLODIPine BESYLATE 10 MG TABLET PO SCH (08:51)
[2019-01-01] MEDS: FLUoxetine HCL 10 MG CAPSULE PO SCH (08:51)
[2019-01-01] MEDS: DIVALPROEX SODIUM 250 MG ER TABLET PO SCH ×2 (08:51→17:16)
[2019-01-01] MEDS: GuaiFENesin/D-METHORPHAN [SUGAR-FREE] 200-20MG/10 ML SYRUP UDCUP PO PRN (09:30)
[2019-01-01 16:24] VITALS: BP 113/54
[2019-01-01] MEDS: TraZODone HCL 50 MG TABLET PO SCH (20:11)
[2019-01-02] MEDS: LORazepam 1 MG TABLET PO PRN ×3 (00:39→20:50)
[2019-01-02 01:14] VITALS: BP 118/66
[2019-01-02] MEDS: IBUPROFEN 400 MG TABLET PO PRN (01:14)
[2019-01-02] MEDS: GuaiFENesin/D-METHORPHAN [SUGAR-FREE] 200-20MG/10 ML SYRUP UDCUP PO PRN ×3 (01:42→19:35)
[2019-01-02] MEDS: LEVOTHYROXINE SODIUM 75 MCG TABLET PO SCH (06:54)
[2019-01-02 08:30] VITALS: BP 140/72
[2019-01-02] MEDS: FUROSEMIDE 20 MG TABLET PO SCH (08:38)
[2019-01-02] MEDS: METOPROLOL SUCCINATE 25 MG ER TABLET PO SCH (08:38)
[2019-01-02] MEDS: DIVALPROEX SODIUM 250 MG ER TABLET PO SCH ×2 (08:38→16:55)
[2019-01-02] MEDS: AmLODIPine BESYLATE 10 MG TABLET PO SCH (08:38)
[2019-01-02] MEDS: OLANZapine 5 MG TABLET PO SCH ×2 (08:38→20:59)
[2019-01-02] MEDS: ASPIRIN 81 MG EC TABLET PO SCH (08:38)
[2019-01-02] MEDS: FLUoxetine HCL 10 MG CAPSULE PO SCH (08:48)
[2019-01-02 17:11] VITALS: BP 114/56
[2019-01-02] MEDS: TraZODone HCL 50 MG TABLET PO SCH (20:59)
[2019-01-03 01:30] VITALS: BP 141/96
[2019-01-03] MEDS: LORazepam 1 MG TABLET PO PRN (01:42)
[2019-01-03] MEDS: IBUPROFEN 400 MG TABLET PO PRN (01:42)
[2019-01-03] MEDS: GuaiFENesin/D-METHORPHAN [SUGAR-FREE] 200-20MG/10 ML SYRUP UDCUP PO PRN ×2 (02:34→13:10)
[2019-01-03] MEDS: LEVOTHYROXINE SODIUM 75 MCG TABLET PO SCH (07:01)
[2019-01-03] MEDS: ASPIRIN 81 MG EC TABLET PO SCH (08:56)
[2019-01-03] MEDS: FLUoxetine HCL 10 MG CAPSULE PO SCH (08:56)
[2019-01-03] MEDS: AmLODIPine BESYLATE 10 MG TABLET PO SCH (08:56)
[2019-01-03] MEDS: DIVALPROEX SODIUM 250 MG ER TABLET PO SCH ×3 (09:00→17:00)
[2019-01-03] MEDS: METOPROLOL SUCCINATE 25 MG ER TABLET PO SCH (09:03)
[2019-01-03] MEDS: OLANZapine 5 MG TABLET PO SCH ×2 (09:05→21:00)
[2019-01-03 09:28] VITALS: BP 156/64
[2019-01-03] MEDS ORDERED: HALOPERIDOL LACTATE 5 MG/ML VIAL IM ONE (18:15)
[2019-01-03] MEDS ORDERED: DiphenhydrAMINE HCL 50 MG/ML VIAL IM ONE (18:15)
[2019-01-03] MEDS ORDERED: LORazepam 2 MG/ML VIAL IM ONE (18:15)
[2019-01-03] MEDS ORDERED: DiphenhydrAMINE HCL 50 MG/ML VIAL ONE (18:16)
[2019-01-03] MEDS ORDERED: HALOPERIDOL LACTATE 5 MG/ML VIAL ONE (18:16)
[2019-01-03] MEDS: TraZODone HCL 50 MG TABLET PO SCH (21:00)
[2019-01-04] MEDS: IBUPROFEN 400 MG TABLET PO PRN (06:22)
[2019-01-04 06:23] VITALS: BP 144/96
[2019-01-04] MEDS: LEVOTHYROXINE SODIUM 75 MCG TABLET PO SCH (06:41)
[2019-01-04 08:01] VITALS: BP 163/84
[2019-01-04] MEDS: AmLODIPine BESYLATE 10 MG TABLET PO SCH (08:31)
[2019-01-04] MEDS: DIVALPROEX SODIUM 250 MG ER TABLET PO SCH ×2 (08:31→17:00)
[2019-01-04] MEDS: HydrALAZINE HCL 25 MG TABLET PO SCH (08:31)
[2019-01-04] MEDS: FLUoxetine HCL 10 MG CAPSULE PO SCH (08:31)
[2019-01-04] MEDS: ASPIRIN 81 MG EC TABLET PO SCH (08:32)
[2019-01-04] MEDS: FUROSEMIDE 20 MG TABLET PO SCH (08:32)
[2019-01-04] MEDS: LORazepam 1 MG TABLET PO PRN ×3 (08:33→20:25)
[2019-01-04] MEDS: METOPROLOL SUCCINATE 25 MG ER TABLET PO SCH (08:34)
[2019-01-04] MEDS: OLANZapine 5 MG TABLET PO SCH ×2 (08:34→20:25)
[2019-01-04] MEDS: METHYL SALICYLATE/MENTHOL 85 GM CREAM TP PRN (12:38)
[2019-01-04 16:27] VITALS: BP 139/82
[2019-01-04] MEDS: TraZODone HCL 50 MG TABLET PO SCH (20:26)
[2019-01-05 01:50] VITALS: BP 160/89
[2019-01-05] MEDS: GuaiFENesin/D-METHORPHAN [SUGAR-FREE] 200-20MG/10 ML SYRUP UDCUP PO PRN ×2 (01:52→10:04)
[2019-01-05] MEDS: LORazepam 1 MG TABLET PO PRN ×2 (01:53→10:04)
[2019-01-05 02:20] VITALS: BP 144/81
[2019-01-05] MEDS: LEVOTHYROXINE SODIUM 75 MCG TABLET PO SCH (06:54)
[2019-01-05 08:09] VITALS: BP 156/81
[2019-01-05] MEDS: FLUoxetine HCL 20 MG CAPSULE PO SCH (09:44)
[2019-01-05] MEDS: FUROSEMIDE 20 MG TABLET PO SCH (09:44)
[2019-01-05] MEDS: METOPROLOL SUCCINATE 25 MG ER TABLET PO SCH (09:44)
[2019-01-05] MEDS: OLANZapine 5 MG TABLET PO SCH ×2 (09:45→20:40)
[2019-01-05] MEDS: DIVALPROEX SODIUM 250 MG ER TABLET PO SCH ×2 (09:45→16:19)
[2019-01-05] MEDS: AmLODIPine BESYLATE 10 MG TABLET PO SCH (09:45)
[2019-01-05] MEDS: ASPIRIN 81 MG EC TABLET PO SCH (09:45)
[2019-01-05] MEDS: HydrALAZINE HCL 25 MG TABLET PO SCH ×2 (09:47→16:19)
[2019-01-05 16:35] VITALS: BP 132/64
[2019-01-05] MEDS ORDERED: ACETAMINOPHEN 325 MG TABLET PO ONE (19:45)
[2019-01-05] MEDS: TraZODone HCL 50 MG TABLET PO SCH (20:40)
[2019-01-05] MEDS: METHYL SALICYLATE/MENTHOL 85 GM CREAM TP PRN (20:56)
[2019-01-06 00:30] VITALS: BP 141/90
[2019-01-06] MEDS: GuaiFENesin/D-METHORPHAN [SUGAR-FREE] 200-20MG/10 ML SYRUP UDCUP PO PRN ×2 (00:33→11:38)
[2019-01-06] MEDS: LORazepam 1 MG TABLET PO PRN (00:44)
[2019-01-06] MEDS: IBUPROFEN 400 MG TABLET PO PRN ×3 (00:44→21:12)
[2019-01-06] MEDS: LEVOTHYROXINE SODIUM 75 MCG TABLET PO SCH (06:41)
[2019-01-06 08:00] VITALS: BP 142/74
[2019-01-06] MEDS: OLANZapine 5 MG TABLET PO SCH ×2 (09:07→20:20)
[2019-01-06] MEDS: DIVALPROEX SODIUM 250 MG ER TABLET PO SCH ×2 (09:08→16:08)
[2019-01-06] MEDS: ASPIRIN 81 MG EC TABLET PO SCH (09:08)
[2019-01-06] MEDS: AmLODIPine BESYLATE 10 MG TABLET PO SCH (09:09)
[2019-01-06] MEDS: FLUoxetine HCL 20 MG CAPSULE PO SCH (09:09)
[2019-01-06] MEDS: METOPROLOL SUCCINATE 25 MG ER TABLET PO SCH (09:09)
[2019-01-06] MEDS: HydrALAZINE HCL 25 MG TABLET PO SCH ×2 (09:10→16:08)
[2019-01-06 14:33] VITALS: BP 124/91
[2019-01-06 16:05] VITALS: BP 140/68
[2019-01-06] MEDS: DENTURE ADHESIVE 68 GM CREAM DT PRN (16:12)
[2019-01-06] MEDS: TraZODone HCL 50 MG TABLET PO SCH (20:20)
[2019-01-06 21:11] VITALS: BP 134/77
[2019-01-07 00:40] VITALS: BP 136/84
[2019-01-07] MEDS: LORazepam 1 MG TABLET PO PRN ×2 (00:43→09:48)
[2019-01-07] MEDS: LEVOTHYROXINE SODIUM 75 MCG TABLET PO SCH (06:59)
[2019-01-07 09:45] VITALS: BP 158/60
[2019-01-07] MEDS: DIVALPROEX SODIUM 250 MG ER TABLET PO SCH ×2 (09:48→16:42)
[2019-01-07] MEDS: ASPIRIN 81 MG EC TABLET PO SCH (09:48)
[2019-01-07] MEDS: METOPROLOL SUCCINATE 25 MG ER TABLET PO SCH (09:48)
[2019-01-07] MEDS: OLANZapine 5 MG TABLET PO SCH ×2 (09:48→20:05)
[2019-01-07] MEDS: HydrALAZINE HCL 25 MG TABLET PO SCH ×2 (09:49→16:42)
[2019-01-07] MEDS: FLUoxetine HCL 20 MG CAPSULE PO SCH (09:49)
[2019-01-07] MEDS: AmLODIPine BESYLATE 10 MG TABLET PO SCH (09:49)
[2019-01-07] MEDS: IBUPROFEN 400 MG TABLET PO PRN (09:56)
[2019-01-07 16:56] VITALS: BP 108/53
[2019-01-07] MEDS: GuaiFENesin/D-METHORPHAN [SUGAR-FREE] 200-20MG/10 ML SYRUP UDCUP PO PRN (18:33)
[2019-01-07] MEDS: TraZODone HCL 50 MG TABLET PO SCH (20:05)
[2019-01-08] MEDS: IBUPROFEN 400 MG TABLET PO PRN (00:36)
[2019-01-08] MEDS: LORazepam 1 MG TABLET PO PRN ×2 (00:36→08:36)
[2019-01-08 00:49] VITALS: BP 151/77
[2019-01-08] MEDS: LEVOTHYROXINE SODIUM 75 MCG TABLET PO SCH (06:06)
[2019-01-08 08:05] VITALS: BP 153/79
[2019-01-08] MEDS: DIVALPROEX SODIUM 250 MG ER TABLET PO SCH ×2 (08:31→17:54)
[2019-01-08] MEDS: ASPIRIN 81 MG EC TABLET PO SCH (08:31)
[2019-01-08] MEDS: AmLODIPine BESYLATE 10 MG TABLET PO SCH (08:32)
[2019-01-08] MEDS: HydrALAZINE HCL 25 MG TABLET PO SCH ×2 (08:32→16:32)
[2019-01-08] MEDS: OLANZapine 5 MG TABLET PO SCH ×2 (08:32→20:30)
[2019-01-08] MEDS: METOPROLOL SUCCINATE 25 MG ER TABLET PO SCH (08:32)
[2019-01-08] MEDS: FUROSEMIDE 20 MG TABLET PO SCH (08:32)
[2019-01-08] MEDS: FLUoxetine HCL 20 MG CAPSULE PO SCH (08:32)
[2019-01-08 16:00] VITALS: BP 117/74
[2019-01-08] MEDS: DENTURE ADHESIVE 68 GM CREAM DT PRN (17:55)
[2019-01-08] MEDS: TraZODone HCL 50 MG TABLET PO SCH (20:30)
[2019-01-09 01:25] VITALS: BP 129/76
[2019-01-09 01:27] VITALS: BP 137/82
[2019-01-09] MEDS: LORazepam 1 MG TABLET PO PRN ×2 (01:28→08:26)
[2019-01-09] MEDS: IBUPROFEN 400 MG TABLET PO PRN (01:28)
[2019-01-09] MEDS: LEVOTHYROXINE SODIUM 75 MCG TABLET PO SCH (06:37)
[2019-01-09 08:14] VITALS: BP 138/65
[2019-01-09] MEDS: DIVALPROEX SODIUM 250 MG ER TABLET PO SCH ×2 (08:25→16:24)
[2019-01-09] MEDS: AmLODIPine BESYLATE 10 MG TABLET PO SCH (08:25)
[2019-01-09] MEDS: ASPIRIN 81 MG EC TABLET PO SCH (08:25)
[2019-01-09] MEDS: FLUoxetine HCL 20 MG CAPSULE PO SCH (08:25)
[2019-01-09] MEDS: HydrALAZINE HCL 25 MG TABLET PO SCH ×2 (08:26→16:24)
[2019-01-09] MEDS: METOPROLOL SUCCINATE 25 MG ER TABLET PO SCH (08:26)
[2019-01-09] MEDS: OLANZapine 5 MG TABLET PO SCH ×2 (08:26→22:01)
[2019-01-09 17:14] VITALS: BP 126/56
[2019-01-09] MEDS: TraZODone HCL 50 MG TABLET PO SCH (22:01)
[2019-01-10 00:16] VITALS: BP 144/66
[2019-01-10] MEDS: IBUPROFEN 400 MG TABLET PO PRN (00:22)
[2019-01-10] MEDS: LORazepam 1 MG TABLET PO PRN ×2 (00:22→21:18)
[2019-01-10] MEDS: LEVOTHYROXINE SODIUM 75 MCG TABLET PO SCH (06:49)
[2019-01-10 08:08] VITALS: BP 154/73
[2019-01-10] MEDS: FLUoxetine HCL 20 MG CAPSULE PO SCH (09:44)
[2019-01-10] MEDS: HydrALAZINE HCL 25 MG TABLET PO SCH ×2 (09:44→17:23)
[2019-01-10] MEDS: OLANZapine 5 MG TABLET PO SCH ×2 (09:44→20:18)
[2019-01-10] MEDS: METOPROLOL SUCCINATE 25 MG ER TABLET PO SCH (09:44)
[2019-01-10] MEDS: DIVALPROEX SODIUM 250 MG ER TABLET PO SCH ×2 (09:44→17:23)
[2019-01-10] MEDS: ASPIRIN 81 MG EC TABLET PO SCH (09:45)
[2019-01-10] MEDS: AmLODIPine BESYLATE 10 MG TABLET PO SCH (09:45)
[2019-01-10] MEDS: FUROSEMIDE 20 MG TABLET PO SCH (09:46)
[2019-01-10 16:21] VITALS: BP 144/85
[2019-01-10] MEDS: TraZODone HCL 50 MG TABLET PO SCH (20:18)
[2019-01-10] MEDS: GuaiFENesin/D-METHORPHAN [SUGAR-FREE] 200-20MG/10 ML SYRUP UDCUP PO PRN (22:01)
[2019-01-11 04:18] VITALS: BP 149/107
[2019-01-11] MEDS: LORazepam 1 MG TABLET PO PRN ×2 (04:50→10:30)
[2019-01-11] MEDS: LEVOTHYROXINE SODIUM 75 MCG TABLET PO SCH (06:41)
[2019-01-11 08:45] VITALS: BP 164/92
[2019-01-11] MEDS: AmLODIPine BESYLATE 10 MG TABLET PO SCH (10:30)
[2019-01-11] MEDS: OLANZapine 5 MG TABLET PO SCH ×2 (10:30→20:10)
[2019-01-11] MEDS: DIVALPROEX SODIUM 250 MG ER TABLET PO SCH ×2 (10:30→17:12)
[2019-01-11] MEDS: ASPIRIN 81 MG EC TABLET PO SCH (10:30)
[2019-01-11] MEDS: FLUoxetine HCL 20 MG CAPSULE PO SCH (10:30)
[2019-01-11] MEDS: METOPROLOL SUCCINATE 25 MG ER TABLET PO SCH (10:33)
[2019-01-11] MEDS: HydrALAZINE HCL 25 MG TABLET PO SCH ×2 (10:35→17:12)
[2019-01-11 13:00] VITALS: BP 139/70
[2019-01-11 17:08] VITALS: BP 129/82
[2019-01-11] MEDS: DENTURE ADHESIVE 68 GM CREAM DT PRN (20:10)
[2019-01-11] MEDS: TraZODone HCL 50 MG TABLET PO SCH (20:10)
[2019-01-11] MEDS: METHYL SALICYLATE/MENTHOL 85 GM CREAM TP PRN (20:54)
[2019-01-12] MEDS: LORazepam 1 MG TABLET PO PRN ×3 (00:19→23:51)
[2019-01-12 00:23] VITALS: BP 145/75
[2019-01-12] MEDS: LEVOTHYROXINE SODIUM 75 MCG TABLET PO SCH (06:42)
[2019-01-12 08:45] VITALS: BP 128/78
[2019-01-12] MEDS: DIVALPROEX SODIUM 250 MG ER TABLET PO SCH ×2 (09:58→16:55)
[2019-01-12] MEDS: FUROSEMIDE 20 MG TABLET PO SCH (09:58)
[2019-01-12] MEDS: METOPROLOL SUCCINATE 25 MG ER TABLET PO SCH (09:58)
[2019-01-12] MEDS: FLUoxetine HCL 20 MG CAPSULE PO SCH (09:58)
[2019-01-12] MEDS: ASPIRIN 81 MG EC TABLET PO SCH (09:59)
[2019-01-12] MEDS: OLANZapine 5 MG TABLET PO SCH ×2 (09:59→20:38)
[2019-01-12] MEDS: HydrALAZINE HCL 25 MG TABLET PO SCH ×2 (09:59→16:55)
[2019-01-12] MEDS: AmLODIPine BESYLATE 10 MG TABLET PO SCH (09:59)
[2019-01-12] MEDS: GuaiFENesin/D-METHORPHAN [SUGAR-FREE] 200-20MG/10 ML SYRUP UDCUP PO PRN (13:08)
[2019-01-12] MEDS ORDERED: TUBERCULIN, PURIFIED PROTEIN DERIVATIVE 5 TU/0.1 ML SYRINGE ID ONE (14:30)
[2019-01-12 16:52] VITALS: BP 128/79
[2019-01-12] MEDS: METHYL SALICYLATE/MENTHOL 85 GM CREAM TP PRN (20:38)
[2019-01-12] MEDS: TraZODone HCL 50 MG TABLET PO SCH (20:38)
[2019-01-12] MEDS: DENTURE ADHESIVE 68 GM CREAM DT PRN (20:39)
[2019-01-13 06:07] VITALS: BP 140/73
[2019-01-13] MEDS: LEVOTHYROXINE SODIUM 75 MCG TABLET PO SCH (06:42)
[2019-01-13] MEDS: ASPIRIN 81 MG EC TABLET PO SCH (08:12)
[2019-01-13] MEDS: FLUoxetine HCL 20 MG CAPSULE PO SCH (08:13)
[2019-01-13] MEDS: HydrALAZINE HCL 25 MG TABLET PO SCH ×2 (08:13→17:13)
[2019-01-13] MEDS: IBUPROFEN 400 MG TABLET PO PRN ×2 (08:15→20:52)
[2019-01-13] MEDS: OLANZapine 5 MG TABLET PO SCH ×2 (08:16→20:17)
[2019-01-13] MEDS: AmLODIPine BESYLATE 10 MG TABLET PO SCH (08:16)
[2019-01-13] MEDS: DIVALPROEX SODIUM 250 MG ER TABLET PO SCH ×2 (08:16→17:14)
[2019-01-13] MEDS: METOPROLOL SUCCINATE 25 MG ER TABLET PO SCH (08:16)
[2019-01-13 08:22] VITALS: BP 131/79
[2019-01-13 09:28] VITALS: BP 127/75
[2019-01-13] MEDS: GuaiFENesin/D-METHORPHAN [SUGAR-FREE] 200-20MG/10 ML SYRUP UDCUP PO PRN (14:54)
[2019-01-13] MEDS: ALBUTEROL SULFATE HFA 90 MCG/PUFF 8 GM INHALER IH PRN (14:55)
[2019-01-13 17:12] VITALS: BP 146/86
[2019-01-13] MEDS: TraZODone HCL 50 MG TABLET PO SCH ×2 (20:17→20:28)
[2019-01-14 00:05] VITALS: BP 136/71
[2019-01-14] MEDS: LORazepam 1 MG TABLET PO PRN (00:15)
[2019-01-14] MEDS: GuaiFENesin/D-METHORPHAN [SUGAR-FREE] 200-20MG/10 ML SYRUP UDCUP PO PRN ×2 (00:38→15:51)
[2019-01-14] MEDS: ALBUTEROL SULFATE HFA 90 MCG/PUFF 8 GM INHALER IH PRN (00:41)
[2019-01-14] MEDS: LEVOTHYROXINE SODIUM 75 MCG TABLET PO SCH (06:51)
[2019-01-14] MEDS: METOPROLOL SUCCINATE 25 MG ER TABLET PO SCH (08:07)
[2019-01-14] MEDS: AmLODIPine BESYLATE 10 MG TABLET PO SCH (08:07)
[2019-01-14] MEDS: ASPIRIN 81 MG EC TABLET PO SCH (08:07)
[2019-01-14] MEDS: OLANZapine 5 MG TABLET PO SCH ×2 (08:07→20:40)
[2019-01-14] MEDS: FLUoxetine HCL 20 MG CAPSULE PO SCH (08:07)
[2019-01-14] MEDS: FUROSEMIDE 20 MG TABLET PO SCH (08:08)
[2019-01-14] MEDS: DIVALPROEX SODIUM 250 MG ER TABLET PO SCH ×2 (08:08→15:58)
[2019-01-14] MEDS: HydrALAZINE HCL 25 MG TABLET PO SCH ×2 (08:08→15:58)
[2019-01-14 08:39] VITALS: BP 163/93
[2019-01-14 16:00] VITALS: BP 138/71
[2019-01-14] MEDS: TraZODone HCL 50 MG TABLET PO SCH (20:40)
[2019-01-15 00:08] VITALS: BP 138/83
[2019-01-15] MEDS: ALBUTEROL SULFATE HFA 90 MCG/PUFF 8 GM INHALER IH PRN (00:08)
[2019-01-15] MEDS: LORazepam 1 MG TABLET PO PRN ×3 (02:03→22:15)
[2019-01-15] MEDS: LEVOTHYROXINE SODIUM 75 MCG TABLET PO SCH (07:03)
[2019-01-15 08:34] VITALS: BP 145/78
[2019-01-15] MEDS: METOPROLOL SUCCINATE 25 MG ER TABLET PO SCH (09:36)
[2019-01-15] MEDS: DIVALPROEX SODIUM 250 MG ER TABLET PO SCH ×2 (09:36→17:22)
[2019-01-15] MEDS: ASPIRIN 81 MG EC TABLET PO SCH (09:36)
[2019-01-15] MEDS: HydrALAZINE HCL 25 MG TABLET PO SCH ×2 (09:36→17:22)
[2019-01-15] MEDS: AmLODIPine BESYLATE 10 MG TABLET PO SCH (09:36)
[2019-01-15] MEDS: OLANZapine 5 MG TABLET PO SCH ×2 (09:36→20:30)
[2019-01-15] MEDS: FLUoxetine HCL 20 MG CAPSULE PO SCH (09:36)
[2019-01-15 16:11] VITALS: BP 131/60
[2019-01-15] MEDS: TraZODone HCL 50 MG TABLET PO SCH (20:30)
[2019-01-16] MEDS: GuaiFENesin/D-METHORPHAN [SUGAR-FREE] 200-20MG/10 ML SYRUP UDCUP PO PRN (05:00)
[2019-01-16 06:32] VITALS: BP 124/57
[2019-01-16] MEDS: LEVOTHYROXINE SODIUM 75 MCG TABLET PO SCH (06:48)
[2019-01-16 08:09] VITALS: BP 140/84
[2019-01-16] MEDS: LORazepam 1 MG TABLET PO PRN ×2 (09:55→20:56)
[2019-01-16] MEDS: OLANZapine 5 MG TABLET PO SCH ×2 (09:55→20:57)
[2019-01-16] MEDS: HydrALAZINE HCL 25 MG TABLET PO SCH ×2 (09:55→17:01)
[2019-01-16] MEDS: DIVALPROEX SODIUM 250 MG ER TABLET PO SCH ×2 (09:55→17:01)
[2019-01-16] MEDS: METOPROLOL SUCCINATE 25 MG ER TABLET PO SCH (09:55)
[2019-01-16] MEDS: AmLODIPine BESYLATE 10 MG TABLET PO SCH (09:55)
[2019-01-16] MEDS: FLUoxetine HCL 20 MG CAPSULE PO SCH (09:55)
[2019-01-16] MEDS: ASPIRIN 81 MG EC TABLET PO SCH (09:56)
[2019-01-16] MEDS: FUROSEMIDE 20 MG TABLET PO SCH (10:09)
[2019-01-16] MEDS: PETROLATUM,WHITE 28 GM JELLY TP PRN (14:00)
[2019-01-16 17:21] VITALS: BP 126/67
[2019-01-16] MEDS: TraZODone HCL 50 MG TABLET PO SCH (20:56)
[2019-01-17 00:18] VITALS: BP 159/69
[2019-01-17] MEDS: ALBUTEROL SULFATE HFA 90 MCG/PUFF 8 GM INHALER IH PRN (00:25)
[2019-01-17] MEDS: LORazepam 1 MG TABLET PO PRN ×2 (01:08→17:54)
[2019-01-17] MEDS: LEVOTHYROXINE SODIUM 75 MCG TABLET PO SCH (06:43)
[2019-01-17] MEDS: HydrALAZINE HCL 25 MG TABLET PO SCH ×2 (08:37→17:54)
[2019-01-17] MEDS: OLANZapine 5 MG TABLET PO SCH ×2 (08:37→21:22)
[2019-01-17] MEDS: AmLODIPine BESYLATE 10 MG TABLET PO SCH (08:37)
[2019-01-17] MEDS: ASPIRIN 81 MG EC TABLET PO SCH (08:37)
[2019-01-17] MEDS: DIVALPROEX SODIUM 250 MG ER TABLET PO SCH ×2 (08:37→17:54)
[2019-01-17] MEDS: METOPROLOL SUCCINATE 25 MG ER TABLET PO SCH (08:37)
[2019-01-17] MEDS: FLUoxetine HCL 20 MG CAPSULE PO SCH (08:37)
[2019-01-17 09:22] VITALS: BP 155/79
[2019-01-17 16:53] VITALS: BP 120/74
[2019-01-17] MEDS: TraZODone HCL 50 MG TABLET PO SCH (21:22)
[2019-01-18 00:05] VITALS: BP 137/77
[2019-01-18] MEDS: LORazepam 1 MG TABLET PO PRN ×2 (01:00→21:41)
[2019-01-18] MEDS: GuaiFENesin/D-METHORPHAN [SUGAR-FREE] 200-20MG/10 ML SYRUP UDCUP PO PRN (03:14)
[2019-01-18] MEDS: PETROLATUM,WHITE 28 GM JELLY TP PRN (04:45)
[2019-01-18] MEDS: LEVOTHYROXINE SODIUM 75 MCG TABLET PO SCH (06:58)
[2019-01-18] MEDS: HydrALAZINE HCL 25 MG TABLET PO SCH ×2 (08:29→16:25)
[2019-01-18] MEDS: OLANZapine 5 MG TABLET PO SCH ×2 (08:29→20:04)
[2019-01-18] MEDS: ASPIRIN 81 MG EC TABLET PO SCH (08:29)
[2019-01-18] MEDS: DIVALPROEX SODIUM 250 MG ER TABLET PO SCH ×2 (08:30→16:25)
[2019-01-18] MEDS: METOPROLOL SUCCINATE 25 MG ER TABLET PO SCH (08:30)
[2019-01-18] MEDS: FLUoxetine HCL 20 MG CAPSULE PO SCH (08:30)
[2019-01-18] MEDS: FUROSEMIDE 20 MG TABLET PO SCH (08:30)
[2019-01-18] MEDS: AmLODIPine BESYLATE 10 MG TABLET PO SCH (08:30)
[2019-01-18 09:16] VITALS: BP 152/77
[2019-01-18 18:38] VITALS: BP 140/62
[2019-01-18] MEDS: TraZODone HCL 50 MG TABLET PO SCH (20:04)
[2019-01-19 02:44] VITALS: BP 151/71
[2019-01-19] MEDS: LEVOTHYROXINE SODIUM 75 MCG TABLET PO SCH (06:52)
[2019-01-19 08:14] VITALS: BP 139/91
[2019-01-19] MEDS: ASPIRIN 81 MG EC TABLET PO SCH (08:36)
[2019-01-19] MEDS: DIVALPROEX SODIUM 250 MG ER TABLET PO SCH ×2 (08:36→16:41)
[2019-01-19] MEDS: FLUoxetine HCL 20 MG CAPSULE PO SCH (08:36)
[2019-01-19] MEDS: METOPROLOL SUCCINATE 25 MG ER TABLET PO SCH (08:36)
[2019-01-19] MEDS: OLANZapine 5 MG TABLET PO SCH ×2 (08:36→20:47)
[2019-01-19] MEDS: AmLODIPine BESYLATE 10 MG TABLET PO SCH (08:36)
[2019-01-19] MEDS: HydrALAZINE HCL 25 MG TABLET PO SCH ×2 (08:37→16:41)
[2019-01-19] MEDS: LORazepam 1 MG TABLET PO PRN ×2 (08:38→22:43)
[2019-01-19] MEDS: GuaiFENesin/D-METHORPHAN [SUGAR-FREE] 200-20MG/10 ML SYRUP UDCUP PO PRN (09:11)
[2019-01-19 20:17] VITALS: BP 133/54
[2019-01-19] MEDS: TraZODone HCL 50 MG TABLET PO SCH (20:47)
[2019-01-20 06:30] VITALS: BP 137/76
[2019-01-20] MEDS: LEVOTHYROXINE SODIUM 75 MCG TABLET PO SCH (06:43)
[2019-01-20] MEDS: HydrALAZINE HCL 25 MG TABLET PO SCH ×2 (08:30→16:52)
[2019-01-20] MEDS: OLANZapine 5 MG TABLET PO SCH ×2 (08:30→20:34)
[2019-01-20] MEDS: DIVALPROEX SODIUM 250 MG ER TABLET PO SCH ×2 (08:30→16:52)
[2019-01-20] MEDS: FLUoxetine HCL 20 MG CAPSULE PO SCH (08:30)
[2019-01-20] MEDS: ASPIRIN 81 MG EC TABLET PO SCH (08:31)
[2019-01-20] MEDS: AmLODIPine BESYLATE 10 MG TABLET PO SCH (08:31)
[2019-01-20] MEDS: METOPROLOL SUCCINATE 25 MG ER TABLET PO SCH (08:31)
[2019-01-20] MEDS: FUROSEMIDE 20 MG TABLET PO SCH (08:31)
[2019-01-20 09:56] VITALS: BP 170/63
[2019-01-20] MEDS: IBUPROFEN 400 MG TABLET PO PRN ×2 (09:58→21:07)
[2019-01-20] MEDS: ALBUTEROL SULFATE HFA 90 MCG/PUFF 8 GM INHALER IH PRN (10:01)
[2019-01-20 16:50] VITALS: BP 117/85
[2019-01-20] MEDS: TraZODone HCL 50 MG TABLET PO SCH (20:34)
[2019-01-20 21:04] VITALS: BP 120/80
[2019-01-20] MEDS: GuaiFENesin/D-METHORPHAN [SUGAR-FREE] 200-20MG/10 ML SYRUP UDCUP PO PRN (21:07)
[2019-01-20] MEDS: LORazepam 1 MG TABLET PO PRN (23:51)
[2019-01-20] MEDS: METHYL SALICYLATE/MENTHOL 85 GM CREAM TP PRN (23:52)
[2019-01-21 04:20] VITALS: BP 148/65
[2019-01-21] MEDS: LEVOTHYROXINE SODIUM 75 MCG TABLET PO SCH (06:58)
[2019-01-21 08:00] VITALS: BP 143/71
[2019-01-21] MEDS: OLANZapine 5 MG TABLET PO SCH ×2 (08:54→20:08)
[2019-01-21] MEDS: ASPIRIN 81 MG EC TABLET PO SCH (08:54)
[2019-01-21] MEDS: FLUoxetine HCL 20 MG CAPSULE PO SCH (08:54)
[2019-01-21] MEDS: DIVALPROEX SODIUM 250 MG ER TABLET PO SCH ×2 (08:54→16:24)
[2019-01-21] MEDS: LORazepam 1 MG TABLET PO PRN ×2 (08:54→23:55)
[2019-01-21] MEDS: AmLODIPine BESYLATE 10 MG TABLET PO SCH (08:54)
[2019-01-21] MEDS: METOPROLOL SUCCINATE 25 MG ER TABLET PO SCH (08:54)
[2019-01-21] MEDS: HydrALAZINE HCL 25 MG TABLET PO SCH ×2 (08:54→16:24)
[2019-01-21 16:23] VITALS: BP 145/88
[2019-01-21] MEDS: TraZODone HCL 50 MG TABLET PO SCH (20:09)
[2019-01-22] MEDS: GuaiFENesin/D-METHORPHAN [SUGAR-FREE] 200-20MG/10 ML SYRUP UDCUP PO PRN (00:41)
[2019-01-22 04:03] VITALS: BP 131/60
[2019-01-22] MEDS: LEVOTHYROXINE SODIUM 75 MCG TABLET PO SCH (06:46)
[2019-01-22] MEDS: FLUoxetine HCL 20 MG CAPSULE PO SCH (08:01)
[2019-01-22] MEDS: FUROSEMIDE 20 MG TABLET PO SCH (08:01)
[2019-01-22] MEDS: HydrALAZINE HCL 25 MG TABLET PO SCH ×2 (08:01→17:14)
[2019-01-22] MEDS: METOPROLOL SUCCINATE 25 MG ER TABLET PO SCH (08:01)
[2019-01-22] MEDS: LORazepam 1 MG TABLET PO PRN ×2 (08:01→17:14)
[2019-01-22] MEDS: AmLODIPine BESYLATE 10 MG TABLET PO SCH (08:02)
[2019-01-22] MEDS: DIVALPROEX SODIUM 250 MG ER TABLET PO SCH ×2 (08:02→17:14)
[2019-01-22] MEDS: ASPIRIN 81 MG EC TABLET PO SCH (08:02)
[2019-01-22] MEDS: OLANZapine 5 MG TABLET PO SCH ×2 (08:02→20:48)
[2019-01-22 10:09] VITALS: BP 142/85
[2019-01-22 16:48] VITALS: BP 134/62
[2019-01-22] MEDS: TraZODone HCL 50 MG TABLET PO SCH (20:48)
[2019-01-23 06:03] VITALS: BP 138/84
[2019-01-23] MEDS: LEVOTHYROXINE SODIUM 75 MCG TABLET PO SCH (06:40)
[2019-01-23 08:00] VITALS: BP 145/69
[2019-01-23] MEDS: AmLODIPine BESYLATE 10 MG TABLET PO SCH (09:15)
[2019-01-23] MEDS: FLUoxetine HCL 20 MG CAPSULE PO SCH (09:15)
[2019-01-23] MEDS: METOPROLOL SUCCINATE 25 MG ER TABLET PO SCH (09:15)
[2019-01-23] MEDS: HydrALAZINE HCL 25 MG TABLET PO SCH ×2 (09:16→17:25)
[2019-01-23] MEDS: OLANZapine 5 MG TABLET PO SCH ×2 (09:16→21:52)
[2019-01-23] MEDS: ASPIRIN 81 MG EC TABLET PO SCH (09:16)
[2019-01-23] MEDS: DIVALPROEX SODIUM 250 MG ER TABLET PO SCH ×2 (09:16→17:26)
[2019-01-23 16:04] VITALS: BP 130/75
[2019-01-23] MEDS: GuaiFENesin/D-METHORPHAN [SUGAR-FREE] 200-20MG/10 ML SYRUP UDCUP PO PRN (16:17)
[2019-01-23] MEDS: TraZODone HCL 50 MG TABLET PO SCH (21:52)
[2019-01-24] MEDS: GuaiFENesin/D-METHORPHAN [SUGAR-FREE] 200-20MG/10 ML SYRUP UDCUP PO PRN ×2 (00:04→07:56)
[2019-01-24] MEDS: LORazepam 1 MG TABLET PO PRN ×2 (00:04→07:56)
[2019-01-24 05:42] VITALS: BP 147/91
[2019-01-24] MEDS: LEVOTHYROXINE SODIUM 75 MCG TABLET PO SCH (06:24)
[2019-01-24 06:57] LABS: CALCIUM, TOTAL 9.1 mg/dL (8.8-10.5); CREATININE 1.3 mg/dL (0.60-1.30); POTASSIUM 4.1 mmol/L (3.5-5.1)
[2019-01-24] MEDS: AmLODIPine BESYLATE 10 MG TABLET PO SCH (07:53)
[2019-01-24] MEDS: FLUoxetine HCL 20 MG CAPSULE PO SCH (07:53)
[2019-01-24] MEDS: ASPIRIN 81 MG EC TABLET PO SCH (07:53)
[2019-01-24] MEDS: METOPROLOL SUCCINATE 25 MG ER TABLET PO SCH (07:54)
[2019-01-24] MEDS: DIVALPROEX SODIUM 250 MG ER TABLET PO SCH ×2 (07:54→17:00)
[2019-01-24] MEDS: OLANZapine 5 MG TABLET PO SCH ×2 (07:54→22:56)
[2019-01-24] MEDS: HydrALAZINE HCL 25 MG TABLET PO SCH ×2 (07:55→17:00)
[2019-01-24] MEDS: FUROSEMIDE 20 MG TABLET PO SCH (07:55)
[2019-01-24 08:00] VITALS: BP 148/82
[2019-01-24 09:00] VITALS: BP 148/82
[2019-01-24] MEDS: BENZOCAINE/MENTHOL LOZENGE PO PRN (09:04)
[2019-01-24 16:21] VITALS: BP 119/55
[2019-01-24] MEDS: TraZODone HCL 50 MG TABLET PO SCH (22:56)
[2019-01-25] VITALS: BP 152/80
[2019-01-25] MEDS: IBUPROFEN 400 MG TABLET PO PRN (00:10)
[2019-01-25] MEDS: LORazepam 1 MG TABLET PO PRN (00:10)
[2019-01-25] MEDS: LEVOTHYROXINE SODIUM 75 MCG TABLET PO SCH (06:20)
[2019-01-25 09:32] VITALS: BP 143/64
[2019-01-25] MEDS: OLANZapine 5 MG TABLET PO SCH ×2 (10:10→22:12)
[2019-01-25] MEDS: FUROSEMIDE 20 MG TABLET PO SCH (10:11)
[2019-01-25] MEDS: ASPIRIN 81 MG EC TABLET PO SCH (10:11)
[2019-01-25] MEDS: FLUoxetine HCL 20 MG CAPSULE PO SCH (10:12)
[2019-01-25] MEDS: AmLODIPine BESYLATE 10 MG TABLET PO SCH (10:12)
[2019-01-25] MEDS: HydrALAZINE HCL 25 MG TABLET PO SCH ×2 (10:12→17:09)
[2019-01-25] MEDS: DIVALPROEX SODIUM 250 MG ER TABLET PO SCH ×2 (10:13→17:09)
[2019-01-25] MEDS: METOPROLOL SUCCINATE 25 MG ER TABLET PO SCH (10:13)
[2019-01-25] MEDS: TraZODone HCL 50 MG TABLET PO SCH (22:13)
[2019-01-25 23:08] VITALS: BP 117/74
[2019-01-26 00:01] VITALS: BP 133/77
[2019-01-26] MEDS: LORazepam 1 MG TABLET PO PRN ×2 (00:04→23:45)
[2019-01-26] MEDS: IBUPROFEN 400 MG TABLET PO PRN ×2 (00:05→23:45)
[2019-01-26] MEDS: LEVOTHYROXINE SODIUM 75 MCG TABLET PO SCH (06:48)
[2019-01-26 07:30] VITALS: BP 147/69
[2019-01-26 08:00] VITALS: BP 147/59
[2019-01-26] MEDS: HydrALAZINE HCL 25 MG TABLET PO SCH ×2 (09:07→16:33)
[2019-01-26] MEDS: OLANZapine 5 MG TABLET PO SCH ×2 (09:07→20:25)
[2019-01-26] MEDS: METOPROLOL SUCCINATE 25 MG ER TABLET PO SCH (09:08)
[2019-01-26] MEDS: ASPIRIN 81 MG EC TABLET PO SCH (09:08)
[2019-01-26] MEDS: FLUoxetine HCL 20 MG CAPSULE PO SCH (09:08)
[2019-01-26] MEDS: AmLODIPine BESYLATE 10 MG TABLET PO SCH (09:08)
[2019-01-26] MEDS: DIVALPROEX SODIUM 250 MG ER TABLET PO SCH ×2 (09:10→16:33)
[2019-01-26] MEDS: TraZODone HCL 50 MG TABLET PO SCH (20:25)
[2019-01-26 20:45] VITALS: BP 127/64
[2019-01-26 23:40] VITALS: BP 130/67
[2019-01-27] MEDS: PETROLATUM,WHITE 28 GM JELLY TP PRN (01:35)
[2019-01-27] MEDS: LEVOTHYROXINE SODIUM 75 MCG TABLET PO SCH (07:00)
[2019-01-27] MEDS: METOPROLOL SUCCINATE 25 MG ER TABLET PO SCH (08:19)
[2019-01-27] MEDS: ASPIRIN 81 MG EC TABLET PO SCH (08:20)
[2019-01-27] MEDS: AmLODIPine BESYLATE 10 MG TABLET PO SCH (08:20)
[2019-01-27] MEDS: LORazepam 1 MG TABLET PO PRN (08:20)
[2019-01-27] MEDS: FLUoxetine HCL 20 MG CAPSULE PO SCH (08:20)
[2019-01-27] MEDS: OLANZapine 5 MG TABLET PO SCH ×2 (08:20→22:06)
[2019-01-27] MEDS: DIVALPROEX SODIUM 250 MG ER TABLET PO SCH ×2 (08:21→16:41)
[2019-01-27] MEDS: HydrALAZINE HCL 25 MG TABLET PO SCH ×2 (08:21→16:41)
[2019-01-27 10:24] VITALS: BP 153/84
[2019-01-27 21:53] VITALS: BP 137/72
[2019-01-27] MEDS: TraZODone HCL 50 MG TABLET PO SCH (22:06)
[2019-01-28] MEDS: IBUPROFEN 400 MG TABLET PO PRN (00:27)
[2019-01-28] MEDS: LORazepam 1 MG TABLET PO PRN (00:27)
[2019-01-28 00:30] VITALS: BP 130/73
[2019-01-28] MEDS: LEVOTHYROXINE SODIUM 75 MCG TABLET PO SCH (06:42)
[2019-01-28 08:00] VITALS: BP 153/62
[2019-01-28] MEDS: ASPIRIN 81 MG EC TABLET PO SCH (09:30)
[2019-01-28] MEDS: OLANZapine 5 MG TABLET PO SCH ×2 (09:30→20:32)
[2019-01-28] MEDS: AmLODIPine BESYLATE 10 MG TABLET PO SCH (09:30)
[2019-01-28] MEDS: HydrALAZINE HCL 25 MG TABLET PO SCH ×2 (09:31→17:56)
[2019-01-28] MEDS: METOPROLOL SUCCINATE 25 MG ER TABLET PO SCH (09:31)
[2019-01-28] MEDS: DIVALPROEX SODIUM 250 MG ER TABLET PO SCH ×2 (09:31→17:56)
[2019-01-28] MEDS: FUROSEMIDE 20 MG TABLET PO SCH (09:31)
[2019-01-28] MEDS: FLUoxetine HCL 20 MG CAPSULE PO SCH (09:31)
[2019-01-28 10:30] VITALS: BP 153/62
[2019-01-28 16:05] VITALS: BP 141/76
[2019-01-28] MEDS: TraZODone HCL 50 MG TABLET PO SCH (20:32)
[2019-01-29 00:25] VITALS: BP 143/61
[2019-01-29] MEDS: LORazepam 1 MG TABLET PO PRN ×2 (00:30→08:59)
[2019-01-29] MEDS: IBUPROFEN 400 MG TABLET PO PRN (00:30)
[2019-01-29] MEDS: ALBUTEROL SULFATE HFA 90 MCG/PUFF 8 GM INHALER IH PRN (04:51)
[2019-01-29] MEDS: LEVOTHYROXINE SODIUM 75 MCG TABLET PO SCH (06:59)
[2019-01-29 08:19] VITALS: BP 158/67
[2019-01-29] MEDS: METOPROLOL SUCCINATE 25 MG ER TABLET PO SCH (08:59)
[2019-01-29] MEDS: OLANZapine 5 MG TABLET PO SCH ×2 (08:59→21:00)
[2019-01-29] MEDS: ASPIRIN 81 MG EC TABLET PO SCH (08:59)
[2019-01-29] MEDS: DIVALPROEX SODIUM 250 MG ER TABLET PO SCH ×2 (08:59→16:53)
[2019-01-29] MEDS: AmLODIPine BESYLATE 10 MG TABLET PO SCH (08:59)
[2019-01-29] MEDS: FLUoxetine HCL 20 MG CAPSULE PO SCH (09:00)
[2019-01-29] MEDS: HydrALAZINE HCL 25 MG TABLET PO SCH ×2 (09:00→16:53)
[2019-01-29] MEDS: GuaiFENesin/D-METHORPHAN [SUGAR-FREE] 200-20MG/10 ML SYRUP UDCUP PO PRN (14:01)
[2019-01-29 16:30] VITALS: BP 135/78
[2019-01-29] MEDS: TraZODone HCL 50 MG TABLET PO SCH (21:01)
[2019-01-30 04:26] VITALS: BP 149/68
[2019-01-30] MEDS: LEVOTHYROXINE SODIUM 75 MCG TABLET PO SCH (07:01)
[2019-01-30 08:01] VITALS: BP 143/80
[2019-01-30] MEDS: METOPROLOL SUCCINATE 25 MG ER TABLET PO SCH (08:56)
[2019-01-30] MEDS: ASPIRIN 81 MG EC TABLET PO SCH (08:56)
[2019-01-30] MEDS: DIVALPROEX SODIUM 250 MG ER TABLET PO SCH ×2 (08:56→17:07)
[2019-01-30] MEDS: FUROSEMIDE 20 MG TABLET PO SCH (08:56)
[2019-01-30] MEDS: OLANZapine 5 MG TABLET PO SCH ×2 (08:56→20:46)
[2019-01-30] MEDS: LORazepam 1 MG TABLET PO PRN ×2 (08:56→23:48)
[2019-01-30] MEDS: AmLODIPine BESYLATE 10 MG TABLET PO SCH (08:56)
[2019-01-30] MEDS: HydrALAZINE HCL 25 MG TABLET PO SCH ×2 (08:57→17:06)
[2019-01-30] MEDS: FLUoxetine HCL 20 MG CAPSULE PO SCH (08:58)
[2019-01-30 09:00] VITALS: BP 143/80
[2019-01-30] MEDS: IBUPROFEN 400 MG TABLET PO PRN (09:07)
[2019-01-30 16:30] VITALS: BP 131/70
[2019-01-30] MEDS: TraZODone HCL 50 MG TABLET PO SCH (20:46)
[2019-01-31 00:27] VITALS: BP 144/75
[2019-01-31] MEDS: LEVOTHYROXINE SODIUM 75 MCG TABLET PO SCH (06:40)
[2019-01-31 08:00] VITALS: BP 162/91
[2019-01-31] MEDS: FLUoxetine HCL 20 MG CAPSULE PO SCH (09:14)
[2019-01-31] MEDS: HydrALAZINE HCL 25 MG TABLET PO SCH ×2 (09:15→16:26)
[2019-01-31] MEDS: DIVALPROEX SODIUM 250 MG ER TABLET PO SCH ×2 (09:15→16:26)
[2019-01-31] MEDS: AmLODIPine BESYLATE 10 MG TABLET PO SCH (09:15)
[2019-01-31] MEDS: OLANZapine 5 MG TABLET PO SCH ×2 (09:15→21:10)
[2019-01-31] MEDS: METOPROLOL SUCCINATE 25 MG ER TABLET PO SCH (09:15)
[2019-01-31] MEDS: ASPIRIN 81 MG EC TABLET PO SCH (09:15)
[2019-01-31 16:37] VITALS: BP 142/57
[2019-01-31] MEDS: TraZODone HCL 50 MG TABLET PO SCH (21:10)
[2019-01-31] MEDS: LORazepam 1 MG TABLET PO PRN (22:25)
[2019-02-01 04:00] VITALS: BP 138/81
[2019-02-01] MEDS: GuaiFENesin/D-METHORPHAN [SUGAR-FREE] 200-20MG/10 ML SYRUP UDCUP PO PRN (04:39)
[2019-02-01] MEDS: IBUPROFEN 400 MG TABLET PO PRN (04:43)
[2019-02-01] MEDS: LEVOTHYROXINE SODIUM 75 MCG TABLET PO SCH (06:44)
[2019-02-01 09:00] VITALS: BP_SYST 62
[2019-02-01] MEDS: FUROSEMIDE 20 MG TABLET PO SCH (09:43)
[2019-02-01] MEDS: AmLODIPine BESYLATE 10 MG TABLET PO SCH (09:43)
[2019-02-01] MEDS: HydrALAZINE HCL 25 MG TABLET PO SCH ×2 (09:43→17:14)
[2019-02-01] MEDS: DIVALPROEX SODIUM 250 MG ER TABLET PO SCH ×2 (09:43→17:14)
[2019-02-01] MEDS: OLANZapine 5 MG TABLET PO SCH ×2 (09:44→21:24)
[2019-02-01] MEDS: FLUoxetine HCL 20 MG CAPSULE PO SCH (09:44)
[2019-02-01] MEDS: METOPROLOL SUCCINATE 25 MG ER TABLET PO SCH (09:44)
[2019-02-01] MEDS: ASPIRIN 81 MG EC TABLET PO SCH (09:44)
[2019-02-01 19:11] VITALS: BP 120/58
[2019-02-01] MEDS: TraZODone HCL 50 MG TABLET PO SCH (21:25)
[2019-02-02 00:02] VITALS: BP 143/88
[2019-02-02] MEDS: IBUPROFEN 400 MG TABLET PO PRN (00:10)
[2019-02-02] MEDS: LORazepam 1 MG TABLET PO PRN (00:10)
[2019-02-02] MEDS: LEVOTHYROXINE SODIUM 75 MCG TABLET PO SCH (06:34)
[2019-02-02 08:00] VITALS: BP 132/50
[2019-02-02] MEDS: FLUoxetine HCL 20 MG CAPSULE PO SCH (09:03)
[2019-02-02] MEDS: METOPROLOL SUCCINATE 25 MG ER TABLET PO SCH (09:03)
[2019-02-02] MEDS: AmLODIPine BESYLATE 10 MG TABLET PO SCH (09:03)
[2019-02-02] MEDS: ASPIRIN 81 MG EC TABLET PO SCH (09:03)
[2019-02-02] MEDS: OLANZapine 5 MG TABLET PO SCH ×2 (09:04→20:21)
[2019-02-02] MEDS: HydrALAZINE HCL 25 MG TABLET PO SCH ×2 (09:04→16:28)
[2019-02-02] MEDS: DIVALPROEX SODIUM 250 MG ER TABLET PO SCH ×2 (09:04→16:28)
[2019-02-02 16:15] VITALS: BP 126/80
[2019-02-02] MEDS: TraZODone HCL 50 MG TABLET PO SCH (20:21)
[2019-02-03] VITALS: BP 158/86
[2019-02-03] MEDS: LORazepam 1 MG TABLET PO PRN ×3 (00:02→20:27)
[2019-02-03] MEDS: IBUPROFEN 400 MG TABLET PO PRN (00:06)
[2019-02-03] MEDS: GuaiFENesin/D-METHORPHAN [SUGAR-FREE] 200-20MG/10 ML SYRUP UDCUP PO PRN (00:40)
[2019-02-03] MEDS: LEVOTHYROXINE SODIUM 75 MCG TABLET PO SCH (06:37)
[2019-02-03] MEDS: OLANZapine 5 MG TABLET PO SCH ×2 (08:10→20:27)
[2019-02-03] MEDS: ASPIRIN 81 MG EC TABLET PO SCH (08:10)
[2019-02-03] MEDS: FUROSEMIDE 20 MG TABLET PO SCH (08:10)
[2019-02-03] MEDS: HydrALAZINE HCL 25 MG TABLET PO SCH ×2 (08:10→16:22)
[2019-02-03] MEDS: FLUoxetine HCL 20 MG CAPSULE PO SCH (08:10)
[2019-02-03] MEDS: METOPROLOL SUCCINATE 25 MG ER TABLET PO SCH (08:10)
[2019-02-03] MEDS: AmLODIPine BESYLATE 10 MG TABLET PO SCH (08:10)
[2019-02-03] MEDS: DIVALPROEX SODIUM 250 MG ER TABLET PO SCH ×2 (08:10→16:22)
[2019-02-03 08:16] VITALS: BP 164/85
[2019-02-03 16:11] VITALS: BP 132/75
[2019-02-03] MEDS: TraZODone HCL 50 MG TABLET PO SCH (20:27)
[2019-02-04] MEDS: ALBUTEROL SULFATE HFA 90 MCG/PUFF 8 GM INHALER IH PRN ×2 (01:54→21:28)
[2019-02-04 04:21] VITALS: BP 148/66
[2019-02-04] MEDS: LEVOTHYROXINE SODIUM 75 MCG TABLET PO SCH (06:40)
[2019-02-04 08:30] VITALS: BP 139/59
[2019-02-04] MEDS: METOPROLOL SUCCINATE 25 MG ER TABLET PO SCH (08:45)
[2019-02-04] MEDS: DIVALPROEX SODIUM 250 MG ER TABLET PO SCH ×2 (08:45→16:40)
[2019-02-04] MEDS: ASPIRIN 81 MG EC TABLET PO SCH (08:45)
[2019-02-04] MEDS: AmLODIPine BESYLATE 10 MG TABLET PO SCH (08:45)
[2019-02-04] MEDS: FLUoxetine HCL 20 MG CAPSULE PO SCH (08:45)
[2019-02-04] MEDS: LORazepam 1 MG TABLET PO PRN (08:45)
[2019-02-04] MEDS: OLANZapine 5 MG TABLET PO SCH ×2 (08:45→20:46)
[2019-02-04] MEDS: HydrALAZINE HCL 25 MG TABLET PO SCH ×2 (08:45→16:40)
[2019-02-04 16:00] VITALS: BP 145/74
[2019-02-04] MEDS: TraZODone HCL 50 MG TABLET PO SCH (20:46)
[2019-02-05 00:02] VITALS: BP 151/66
[2019-02-05] MEDS: LORazepam 1 MG TABLET PO PRN ×2 (00:10→08:30)
[2019-02-05] MEDS: IBUPROFEN 400 MG TABLET PO PRN (00:11)
[2019-02-05] MEDS: GuaiFENesin/D-METHORPHAN [SUGAR-FREE] 200-20MG/10 ML SYRUP UDCUP PO PRN (03:43)
[2019-02-05] MEDS: LEVOTHYROXINE SODIUM 75 MCG TABLET PO SCH (06:37)
[2019-02-05 08:00] VITALS: BP 135/62
[2019-02-05] MEDS: METOPROLOL SUCCINATE 25 MG ER TABLET PO SCH (08:30)
[2019-02-05] MEDS: OLANZapine 5 MG TABLET PO SCH ×2 (08:30→20:21)
[2019-02-05] MEDS: FLUoxetine HCL 20 MG CAPSULE PO SCH (08:30)
[2019-02-05] MEDS: DIVALPROEX SODIUM 250 MG ER TABLET PO SCH ×2 (08:31→16:33)
[2019-02-05] MEDS: FUROSEMIDE 20 MG TABLET PO SCH (08:31)
[2019-02-05] MEDS: AmLODIPine BESYLATE 10 MG TABLET PO SCH (08:31)
[2019-02-05] MEDS: HydrALAZINE HCL 25 MG TABLET PO SCH ×2 (08:31→16:33)
[2019-02-05] MEDS: ASPIRIN 81 MG EC TABLET PO SCH (08:31)
[2019-02-05 16:12] VITALS: BP 134/81
[2019-02-05] MEDS: TraZODone HCL 50 MG TABLET PO SCH (20:21)
[2019-02-06 00:02] VITALS: BP 132/86
[2019-02-06] MEDS: IBUPROFEN 400 MG TABLET PO PRN ×2 (00:06→13:14)
[2019-02-06] MEDS: FLUoxetine HCL 20 MG CAPSULE PO SCH (08:51)
[2019-02-06] MEDS: METOPROLOL SUCCINATE 25 MG ER TABLET PO SCH (08:51)
[2019-02-06] MEDS: OLANZapine 5 MG TABLET PO SCH ×2 (08:51→20:53)
[2019-02-06] MEDS: LEVOTHYROXINE SODIUM 75 MCG TABLET PO SCH (08:51)
[2019-02-06] MEDS: HydrALAZINE HCL 25 MG TABLET PO SCH ×2 (08:52→15:56)
[2019-02-06] MEDS: DIVALPROEX SODIUM 250 MG ER TABLET PO SCH ×2 (08:53→15:58)
[2019-02-06] MEDS: ASPIRIN 81 MG EC TABLET PO SCH (08:54)
[2019-02-06] MEDS: AmLODIPine BESYLATE 10 MG TABLET PO SCH (08:54)
[2019-02-06 09:03] VITALS: BP 147/70
[2019-02-06] MEDS: MAG HYDROX/AL HYDROX/SIMETH ES 30 ML SUSPENSION UDCUP PO PRN (15:16)
[2019-02-06] MEDS: MAGNESIUM HYDROXIDE SUSPENSION 30 ML UDCUP PO PRN (15:56)
[2019-02-06 18:42] VITALS: BP 138/56
[2019-02-06] MEDS: TraZODone HCL 50 MG TABLET PO SCH (20:52)
[2019-02-07 00:03] VITALS: BP 141/72
[2019-02-07] MEDS: LORazepam 1 MG TABLET PO PRN ×2 (00:06→23:59)
[2019-02-07] MEDS: IBUPROFEN 400 MG TABLET PO PRN ×2 (00:06→23:59)
[2019-02-07] MEDS: GuaiFENesin/D-METHORPHAN [SUGAR-FREE] 200-20MG/10 ML SYRUP UDCUP PO PRN (00:25)
[2019-02-07] MEDS: ALBUTEROL SULFATE HFA 90 MCG/PUFF 8 GM INHALER IH PRN (00:26)
[2019-02-07] MEDS: LEVOTHYROXINE SODIUM 75 MCG TABLET PO SCH (06:46)
[2019-02-07 08:30] VITALS: BP 118/66
[2019-02-07] MEDS: HydrALAZINE HCL 25 MG TABLET PO SCH ×2 (09:10→16:41)
[2019-02-07] MEDS: DIVALPROEX SODIUM 250 MG ER TABLET PO SCH ×2 (09:10→16:41)
[2019-02-07] MEDS: AmLODIPine BESYLATE 10 MG TABLET PO SCH (09:10)
[2019-02-07] MEDS: FUROSEMIDE 20 MG TABLET PO SCH (09:11)
[2019-02-07] MEDS: OLANZapine 5 MG TABLET PO SCH ×2 (09:11→20:30)
[2019-02-07] MEDS: FLUoxetine HCL 20 MG CAPSULE PO SCH (09:11)
[2019-02-07] MEDS: ASPIRIN 81 MG EC TABLET PO SCH (09:11)
[2019-02-07] MEDS: METOPROLOL SUCCINATE 25 MG ER TABLET PO SCH (09:12)
[2019-02-07 17:20] VITALS: BP 139/62
[2019-02-07] MEDS: TraZODone HCL 50 MG TABLET PO SCH (20:30)
[2019-02-07 23:55] VITALS: BP 141/88
[2019-02-08] MEDS: LEVOTHYROXINE SODIUM 75 MCG TABLET PO SCH (06:56)
[2019-02-08 08:30] VITALS: BP 146/74
[2019-02-08] MEDS: ASPIRIN 81 MG EC TABLET PO SCH (09:00)
[2019-02-08] MEDS: DIVALPROEX SODIUM 250 MG ER TABLET PO SCH ×2 (09:00→16:49)
[2019-02-08] MEDS: HydrALAZINE HCL 25 MG TABLET PO SCH ×2 (09:00→16:49)
[2019-02-08] MEDS: FLUoxetine HCL 20 MG CAPSULE PO SCH (09:00)
[2019-02-08] MEDS: OLANZapine 5 MG TABLET PO SCH ×2 (09:00→20:04)
[2019-02-08] MEDS: AmLODIPine BESYLATE 10 MG TABLET PO SCH (09:00)
[2019-02-08] MEDS: METOPROLOL SUCCINATE 25 MG ER TABLET PO SCH (09:00)
[2019-02-08 17:23] VITALS: BP 115/60
[2019-02-08] MEDS: TraZODone HCL 50 MG TABLET PO SCH (20:04)
[2019-02-08 22:54] VITALS: BP 147/68
[2019-02-08] MEDS: LORazepam 1 MG TABLET PO PRN (23:00)
[2019-02-09] VITALS: BP 132/90
[2019-02-09] MEDS: LEVOTHYROXINE SODIUM 75 MCG TABLET PO SCH (06:57)
[2019-02-09 08:50] VITALS: BP 153/93
[2019-02-09] MEDS: OLANZapine 5 MG TABLET PO SCH ×2 (09:46→21:12)
[2019-02-09] MEDS: DIVALPROEX SODIUM 250 MG ER TABLET PO SCH ×2 (09:46→18:37)
[2019-02-09] MEDS: FLUoxetine HCL 20 MG CAPSULE PO SCH (09:46)
[2019-02-09] MEDS: METOPROLOL SUCCINATE 25 MG ER TABLET PO SCH (09:46)
[2019-02-09] MEDS: AmLODIPine BESYLATE 10 MG TABLET PO SCH (09:47)
[2019-02-09] MEDS: FUROSEMIDE 20 MG TABLET PO SCH (09:47)
[2019-02-09] MEDS: ASPIRIN 81 MG EC TABLET PO SCH (09:47)
[2019-02-09] MEDS: HydrALAZINE HCL 25 MG TABLET PO SCH ×3 (09:48→18:37)
[2019-02-09 12:45] VITALS: BP 131/71
[2019-02-09 16:30] VITALS: BP 109/61
[2019-02-09] MEDS: TraZODone HCL 50 MG TABLET PO SCH (21:12)
[2019-02-10 02:21] VITALS: BP 155/68
[2019-02-10] MEDS: GuaiFENesin/D-METHORPHAN [SUGAR-FREE] 200-20MG/10 ML SYRUP UDCUP PO PRN (03:25)
[2019-02-10 06:05] VITALS: BP 125/66
[2019-02-10] MEDS: IBUPROFEN 400 MG TABLET PO PRN (06:08)
[2019-02-10] MEDS: LEVOTHYROXINE SODIUM 75 MCG TABLET PO SCH (06:16)
[2019-02-10 07:45] LABS: CALCIUM, TOTAL 8.3 mg/dL (8.8-10.5); CREATININE 1.38 mg/dL (0.60-1.30); POTASSIUM 4.3 mmol/L (3.5-5.1)
[2019-02-10 08:00] VITALS: BP 145/65
[2019-02-10] MEDS: OLANZapine 5 MG TABLET PO SCH (09:07)
[2019-02-10] MEDS: ASPIRIN 81 MG EC TABLET PO SCH (09:07)
[2019-02-10] MEDS: METOPROLOL SUCCINATE 25 MG ER TABLET PO SCH (09:08)
[2019-02-10] MEDS: DIVALPROEX SODIUM 250 MG ER TABLET PO SCH ×2 (09:08→16:52)
[2019-02-10] MEDS: FLUoxetine HCL 20 MG CAPSULE PO SCH (09:08)
[2019-02-10] MEDS: AmLODIPine BESYLATE 10 MG TABLET PO SCH (09:09)
[2019-02-10] MEDS: HydrALAZINE HCL 25 MG TABLET PO SCH ×3 (09:10→16:52)
[2019-02-10 13:05] VITALS: BP 107/66
[2019-02-11 00:15] VITALS: BP 147/71
[2019-02-11] MEDS: MAG HYDROX/AL HYDROX/SIMETH ES 30 ML SUSPENSION UDCUP PO PRN ×2 (04:02→18:55)
[2019-02-11] MEDS: LEVOTHYROXINE SODIUM 75 MCG TABLET PO SCH (06:42)
[2019-02-11] MEDS: METOPROLOL SUCCINATE 25 MG ER TABLET PO SCH (10:21)
[2019-02-11] MEDS: FLUoxetine HCL 20 MG CAPSULE PO SCH (10:21)
[2019-02-11] MEDS: ASPIRIN 81 MG EC TABLET PO SCH (10:21)
[2019-02-11] MEDS: DIVALPROEX SODIUM 250 MG ER TABLET PO SCH ×2 (10:21→17:13)
[2019-02-11] MEDS: HydrALAZINE HCL 25 MG TABLET PO SCH ×3 (10:22→17:13)
[2019-02-11] MEDS: OLANZapine 5 MG TABLET PO SCH ×2 (10:22→21:00)
[2019-02-11] MEDS: AmLODIPine BESYLATE 10 MG TABLET PO SCH (10:23)
[2019-02-11] MEDS: FUROSEMIDE 20 MG TABLET PO SCH (10:23)
[2019-02-11 12:12] VITALS: BP 155/81
[2019-02-11 12:30] VITALS: BP 110/63
[2019-02-11 20:00] VITALS: BP 117/61
[2019-02-11] MEDS: TraZODone HCL 50 MG TABLET PO SCH (21:00)
[2019-02-11] MEDS: LORazepam 1 MG TABLET PO PRN (21:17)
[2019-02-12] MEDS: LEVOTHYROXINE SODIUM 75 MCG TABLET PO SCH (06:42)
[2019-02-12 08:30] VITALS: BP 140/60
[2019-02-12] MEDS: DIVALPROEX SODIUM 250 MG ER TABLET PO SCH ×2 (10:03→17:27)
[2019-02-12] MEDS: AmLODIPine BESYLATE 10 MG TABLET PO SCH (10:03)
[2019-02-12] MEDS: OLANZapine 5 MG TABLET PO SCH ×2 (10:03→20:54)
[2019-02-12] MEDS: FLUoxetine HCL 20 MG CAPSULE PO SCH (10:03)
[2019-02-12] MEDS: ASPIRIN 81 MG EC TABLET PO SCH (10:03)
[2019-02-12] MEDS: METOPROLOL SUCCINATE 25 MG ER TABLET PO SCH (10:03)
[2019-02-12] MEDS: HydrALAZINE HCL 25 MG TABLET PO SCH ×3 (10:04→17:27)
[2019-02-12 13:45] VITALS: BP 103/45
[2019-02-12 20:09] VITALS: BP 119/63
[2019-02-12] MEDS: TraZODone HCL 50 MG TABLET PO SCH (20:54)
[2019-02-13] MEDS: GuaiFENesin/D-METHORPHAN [SUGAR-FREE] 200-20MG/10 ML SYRUP UDCUP PO PRN ×2 (00:26→09:18)
[2019-02-13 00:27] VITALS: BP 143/89
[2019-02-13] MEDS: LORazepam 1 MG TABLET PO PRN ×2 (00:34→22:54)
[2019-02-13] MEDS: IBUPROFEN 400 MG TABLET PO PRN (00:34)
[2019-02-13] MEDS: MAG HYDROX/AL HYDROX/SIMETH ES 30 ML SUSPENSION UDCUP PO PRN (01:04)
[2019-02-13] MEDS: LEVOTHYROXINE SODIUM 75 MCG TABLET PO SCH (06:40)
[2019-02-13 08:28] VITALS: BP 136/80
[2019-02-13] MEDS: ASPIRIN 81 MG EC TABLET PO SCH (09:16)
[2019-02-13] MEDS: FUROSEMIDE 20 MG TABLET PO SCH (09:16)
[2019-02-13] MEDS: METOPROLOL SUCCINATE 25 MG ER TABLET PO SCH (09:16)
[2019-02-13] MEDS: AmLODIPine BESYLATE 10 MG TABLET PO SCH (09:16)
[2019-02-13] MEDS: DIVALPROEX SODIUM 250 MG ER TABLET PO SCH ×2 (09:16→16:44)
[2019-02-13] MEDS: OLANZapine 5 MG TABLET PO SCH ×2 (09:16→20:43)
[2019-02-13] MEDS: FLUoxetine HCL 20 MG CAPSULE PO SCH (09:16)
[2019-02-13] MEDS: HydrALAZINE HCL 25 MG TABLET PO SCH ×3 (09:17→16:43)
[2019-02-13 12:59] VITALS: BP 110/57
[2019-02-13] MEDS: TraZODone HCL 50 MG TABLET PO SCH (20:43)
[2019-02-13 23:17] VITALS: BP 120/71
[2019-02-14] MEDS: MAG HYDROX/AL HYDROX/SIMETH ES 30 ML SUSPENSION UDCUP PO PRN (02:29)
[2019-02-14] MEDS: GuaiFENesin/D-METHORPHAN [SUGAR-FREE] 200-20MG/10 ML SYRUP UDCUP PO PRN ×2 (02:38→13:20)
[2019-02-14 02:58] VITALS: BP 153/73
[2019-02-14] MEDS: LEVOTHYROXINE SODIUM 75 MCG TABLET PO SCH (06:43)
[2019-02-14] MEDS: OLANZapine 5 MG TABLET PO SCH ×2 (08:51→20:31)
[2019-02-14] MEDS: HydrALAZINE HCL 25 MG TABLET PO SCH ×3 (08:51→16:14)
[2019-02-14] MEDS: DIVALPROEX SODIUM 250 MG ER TABLET PO SCH ×2 (08:52→16:16)
[2019-02-14] MEDS: METOPROLOL SUCCINATE 25 MG ER TABLET PO SCH (08:52)
[2019-02-14] MEDS: ASPIRIN 81 MG EC TABLET PO SCH (08:52)
[2019-02-14] MEDS: FLUoxetine HCL 20 MG CAPSULE PO SCH (08:52)
[2019-02-14] MEDS: AmLODIPine BESYLATE 10 MG TABLET PO SCH (08:52)
[2019-02-14 09:00] VITALS: BP 150/83
[2019-02-14] MEDS: IBUPROFEN 400 MG TABLET PO PRN (14:44)
[2019-02-14 18:16] VITALS: BP 112/52
[2019-02-14] MEDS: TraZODone HCL 50 MG TABLET PO SCH (20:31)
[2019-02-14] MEDS: LORazepam 1 MG TABLET PO PRN (22:01)
[2019-02-15] MEDS: LEVOTHYROXINE SODIUM 75 MCG TABLET PO SCH (06:40)
[2019-02-15 09:00] VITALS: BP 156/84
[2019-02-15] MEDS: OLANZapine 5 MG TABLET PO SCH ×2 (10:05→21:04)
[2019-02-15] MEDS: AmLODIPine BESYLATE 10 MG TABLET PO SCH (10:05)
[2019-02-15] MEDS: FLUoxetine HCL 20 MG CAPSULE PO SCH (10:05)
[2019-02-15] MEDS: DIVALPROEX SODIUM 250 MG ER TABLET PO SCH ×2 (10:05→17:25)
[2019-02-15] MEDS: ASPIRIN 81 MG EC TABLET PO SCH (10:06)
[2019-02-15] MEDS: HydrALAZINE HCL 25 MG TABLET PO SCH ×3 (10:08→17:25)
[2019-02-15] MEDS: FUROSEMIDE 20 MG TABLET PO SCH (10:08)
[2019-02-15] MEDS: METOPROLOL SUCCINATE 25 MG ER TABLET PO SCH (10:08)
[2019-02-15 20:36] VITALS: BP 146/67
[2019-02-15] MEDS: TraZODone HCL 50 MG TABLET PO SCH (21:04)
[2019-02-16] MEDS: LEVOTHYROXINE SODIUM 75 MCG TABLET PO SCH (06:49)
[2019-02-16] MEDS: METOPROLOL SUCCINATE 25 MG ER TABLET PO SCH (08:10)
[2019-02-16] MEDS: ASPIRIN 81 MG EC TABLET PO SCH (08:10)
[2019-02-16] MEDS: FLUoxetine HCL 20 MG CAPSULE PO SCH (08:11)
[2019-02-16] MEDS: DIVALPROEX SODIUM 250 MG ER TABLET PO SCH ×2 (08:12→17:15)
[2019-02-16] MEDS: AmLODIPine BESYLATE 10 MG TABLET PO SCH (08:12)
[2019-02-16] MEDS: OLANZapine 5 MG TABLET PO SCH ×2 (08:13→20:51)
[2019-02-16] MEDS: HydrALAZINE HCL 25 MG TABLET PO SCH ×3 (08:14→17:15)
[2019-02-16 08:30] VITALS: BP 156/71
[2019-02-16] MEDS: IBUPROFEN 400 MG TABLET PO PRN (17:15)
[2019-02-16 17:16] VITALS: BP 129/68
[2019-02-16] MEDS: TraZODone HCL 50 MG TABLET PO SCH (20:51)
[2019-02-17 01:45] VITALS: BP 159/75
[2019-02-17] MEDS: LORazepam 1 MG TABLET PO PRN (01:50)
[2019-02-17] MEDS: IBUPROFEN 400 MG TABLET PO PRN (01:52)
[2019-02-17] MEDS: GuaiFENesin/D-METHORPHAN [SUGAR-FREE] 200-20MG/10 ML SYRUP UDCUP PO PRN (02:45)
[2019-02-17] MEDS: LEVOTHYROXINE SODIUM 75 MCG TABLET PO SCH (06:36)
[2019-02-17] MEDS: ASPIRIN 81 MG EC TABLET PO SCH (08:32)
[2019-02-17] MEDS: DIVALPROEX SODIUM 250 MG ER TABLET PO SCH ×2 (08:32→16:17)
[2019-02-17] MEDS: METOPROLOL SUCCINATE 25 MG ER TABLET PO SCH (08:32)
[2019-02-17] MEDS: OLANZapine 5 MG TABLET PO SCH ×2 (08:32→21:35)
[2019-02-17] MEDS: AmLODIPine BESYLATE 10 MG TABLET PO SCH (08:32)
[2019-02-17] MEDS: FLUoxetine HCL 20 MG CAPSULE PO SCH (08:32)
[2019-02-17] MEDS: FUROSEMIDE 20 MG TABLET PO SCH (08:33)
[2019-02-17] MEDS: HydrALAZINE HCL 25 MG TABLET PO SCH ×2 (08:34→12:22)
[2019-02-17 09:05] VITALS: BP 161/82
[2019-02-17 16:15] VITALS: BP 146/63
[2019-02-17] MEDS: HydrALAZINE HCL 50 MG TABLET PO SCH (16:17)
[2019-02-17] MEDS: TraZODone HCL 50 MG TABLET PO SCH (21:35)
[2019-02-18] MEDS: LORazepam 1 MG TABLET PO PRN (01:27)
[2019-02-18] MEDS: IBUPROFEN 400 MG TABLET PO PRN (01:35)
[2019-02-18 01:36] VITALS: BP 129/61
[2019-02-18] MEDS: LEVOTHYROXINE SODIUM 75 MCG TABLET PO SCH (06:51)
[2019-02-18] MEDS: OLANZapine 5 MG TABLET PO SCH ×2 (08:37→20:25)
[2019-02-18] MEDS: FLUoxetine HCL 20 MG CAPSULE PO SCH (08:38)
[2019-02-18] MEDS: ASPIRIN 81 MG EC TABLET PO SCH (08:38)
[2019-02-18] MEDS: METOPROLOL SUCCINATE 25 MG ER TABLET PO SCH (08:38)
[2019-02-18] MEDS: HydrALAZINE HCL 50 MG TABLET PO SCH ×2 (08:38→16:55)
[2019-02-18] MEDS: AmLODIPine BESYLATE 10 MG TABLET PO SCH (08:38)
[2019-02-18] MEDS: DIVALPROEX SODIUM 250 MG ER TABLET PO SCH ×2 (08:38→16:55)
[2019-02-18 10:29] VITALS: BP 146/64
[2019-02-18 16:29] VITALS: BP 123/73
[2019-02-18] MEDS: TraZODone HCL 50 MG TABLET PO SCH (20:25)
[2019-02-18] MEDS: ALBUTEROL SULFATE HFA 90 MCG/PUFF 8 GM INHALER IH PRN (20:49)
[2019-02-18] MEDS: GuaiFENesin/D-METHORPHAN [SUGAR-FREE] 200-20MG/10 ML SYRUP UDCUP PO PRN (21:23)
[2019-02-19 00:30] VITALS: BP 149/87
[2019-02-19] MEDS: LORazepam 1 MG TABLET PO PRN (00:33)
[2019-02-19] MEDS: IBUPROFEN 400 MG TABLET PO PRN (00:34)
[2019-02-19] MEDS: LEVOTHYROXINE SODIUM 75 MCG TABLET PO SCH (06:35)
[2019-02-19 08:53] VITALS: BP 128/73
[2019-02-19] MEDS: METOPROLOL SUCCINATE 25 MG ER TABLET PO SCH (09:25)
[2019-02-19] MEDS: ASPIRIN 81 MG EC TABLET PO SCH (09:25)
[2019-02-19] MEDS: DIVALPROEX SODIUM 250 MG ER TABLET PO SCH ×2 (09:25→16:10)
[2019-02-19] MEDS: FLUoxetine HCL 20 MG CAPSULE PO SCH (09:25)
[2019-02-19] MEDS: HydrALAZINE HCL 50 MG TABLET PO SCH ×2 (09:26→16:10)
[2019-02-19] MEDS: OLANZapine 5 MG TABLET PO SCH ×2 (09:26→20:14)
[2019-02-19] MEDS: AmLODIPine BESYLATE 10 MG TABLET PO SCH (09:26)
[2019-02-19] MEDS: FUROSEMIDE 20 MG TABLET PO SCH (09:27)
[2019-02-19 16:09] VITALS: BP 139/69
[2019-02-19] MEDS: TraZODone HCL 50 MG TABLET PO SCH (20:14)
[2019-02-20 00:08] VITALS: BP 118/62
[2019-02-20] MEDS: IBUPROFEN 400 MG TABLET PO PRN (00:10)
[2019-02-20] MEDS: LORazepam 1 MG TABLET PO PRN ×2 (00:10→20:24)
[2019-02-20] MEDS: LEVOTHYROXINE SODIUM 75 MCG TABLET PO SCH (06:48)
[2019-02-20 07:10] LABS: CALCIUM, TOTAL 8.5 mg/dL (8.8-10.5); CREATININE 1.7 mg/dL (0.60-1.30); POTASSIUM 4.7 mmol/L (3.5-5.1)
[2019-02-20 08:59] VITALS: BP 146/75
[2019-02-20] MEDS: AmLODIPine BESYLATE 10 MG TABLET PO SCH (09:31)
[2019-02-20] MEDS: FLUoxetine HCL 20 MG CAPSULE PO SCH (09:31)
[2019-02-20] MEDS: OLANZapine 5 MG TABLET PO SCH ×2 (09:31→20:12)
[2019-02-20] MEDS: METOPROLOL SUCCINATE 25 MG ER TABLET PO SCH (09:32)
[2019-02-20] MEDS: ASPIRIN 81 MG EC TABLET PO SCH (09:32)
[2019-02-20] MEDS: DIVALPROEX SODIUM 250 MG ER TABLET PO SCH ×2 (09:32→16:10)
[2019-02-20] MEDS: HydrALAZINE HCL 50 MG TABLET PO SCH ×2 (09:32→16:10)
[2019-02-20 16:09] VITALS: BP 148/71
[2019-02-20] MEDS: TraZODone HCL 50 MG TABLET PO SCH (20:12)
[2019-02-20 20:20] VITALS: BP 116/73
[2019-02-21] MEDS: LEVOTHYROXINE SODIUM 75 MCG TABLET PO SCH (06:46)
[2019-02-21 08:30] VITALS: BP 150/81
[2019-02-21] MEDS: AmLODIPine BESYLATE 10 MG TABLET PO SCH (10:09)
[2019-02-21] MEDS: DIVALPROEX SODIUM 250 MG ER TABLET PO SCH ×2 (10:10→17:06)
[2019-02-21] MEDS: HydrALAZINE HCL 50 MG TABLET PO SCH ×2 (10:10→17:07)
[2019-02-21] MEDS: FLUoxetine HCL 20 MG CAPSULE PO SCH (10:10)
[2019-02-21] MEDS: METOPROLOL SUCCINATE 25 MG ER TABLET PO SCH (10:10)
[2019-02-21] MEDS: OLANZapine 5 MG TABLET PO SCH ×2 (10:12→20:59)
[2019-02-21] MEDS: ASPIRIN 81 MG EC TABLET PO SCH (10:17)
[2019-02-21 18:16] VITALS: BP 119/55
[2019-02-21] MEDS: TraZODone HCL 50 MG TABLET PO SCH (20:59)
[2019-02-21 21:11] VITALS: BP 165/73
[2019-02-21] MEDS: IBUPROFEN 400 MG TABLET PO PRN (21:11)
[2019-02-22 00:20] VITALS: BP 159/75
[2019-02-22] MEDS: LORazepam 1 MG TABLET PO PRN (00:23)
[2019-02-22] MEDS: LEVOTHYROXINE SODIUM 75 MCG TABLET PO SCH (06:32)
[2019-02-22 10:06] VITALS: BP 140/68
[2019-02-22] MEDS: OLANZapine 5 MG TABLET PO SCH ×2 (10:49→20:22)
[2019-02-22] MEDS: FLUoxetine HCL 20 MG CAPSULE PO SCH (10:49)
[2019-02-22] MEDS: DIVALPROEX SODIUM 250 MG ER TABLET PO SCH ×2 (10:49→16:15)
[2019-02-22] MEDS: ASPIRIN 81 MG EC TABLET PO SCH (10:49)
[2019-02-22] MEDS: HydrALAZINE HCL 50 MG TABLET PO SCH ×2 (10:49→16:15)
[2019-02-22] MEDS: METOPROLOL SUCCINATE 25 MG ER TABLET PO SCH (10:50)
[2019-02-22] MEDS: AmLODIPine BESYLATE 10 MG TABLET PO SCH (10:50)
[2019-02-22 18:19] VITALS: BP 112/69
[2019-02-22] MEDS: MAGNESIUM HYDROXIDE SUSPENSION 30 ML UDCUP PO PRN (20:22)
[2019-02-22] MEDS: TraZODone HCL 50 MG TABLET PO SCH (20:23)
[2019-02-23 00:10] VITALS: BP 119/61
[2019-02-23] MEDS: LORazepam 1 MG TABLET PO PRN (00:14)
[2019-02-23] MEDS: IBUPROFEN 400 MG TABLET PO PRN (00:14)
[2019-02-23] MEDS: LEVOTHYROXINE SODIUM 75 MCG TABLET PO SCH (06:51)
[2019-02-23 08:30] VITALS: BP 149/84
[2019-02-23] MEDS: METOPROLOL SUCCINATE 25 MG ER TABLET PO SCH (08:57)
[2019-02-23] MEDS: AmLODIPine BESYLATE 10 MG TABLET PO SCH (08:57)
[2019-02-23] MEDS: ASPIRIN 81 MG EC TABLET PO SCH (08:57)
[2019-02-23] MEDS: FLUoxetine HCL 20 MG CAPSULE PO SCH (08:57)
[2019-02-23] MEDS: OLANZapine 5 MG TABLET PO SCH ×2 (08:57→20:47)
[2019-02-23] MEDS: DIVALPROEX SODIUM 250 MG ER TABLET PO SCH ×2 (08:57→16:32)
[2019-02-23] MEDS: HydrALAZINE HCL 50 MG TABLET PO SCH ×2 (08:57→16:32)
[2019-02-23 16:30] VITALS: BP 130/72
[2019-02-23] MEDS: TraZODone HCL 50 MG TABLET PO SCH (20:44)
[2019-02-24 01:49] VITALS: BP 162/79
[2019-02-24] MEDS: LORazepam 1 MG TABLET PO PRN (02:37)
[2019-02-24] MEDS: IBUPROFEN 400 MG TABLET PO PRN (02:38)
[2019-02-24] MEDS: LEVOTHYROXINE SODIUM 75 MCG TABLET PO SCH (06:55)
[2019-02-24] MEDS: HydrALAZINE HCL 50 MG TABLET PO SCH ×2 (10:05→17:38)
[2019-02-24] MEDS: OLANZapine 5 MG TABLET PO SCH ×2 (10:06→20:44)
[2019-02-24] MEDS: METOPROLOL SUCCINATE 25 MG ER TABLET PO SCH (10:10)
[2019-02-24] MEDS: FLUoxetine HCL 20 MG CAPSULE PO SCH (10:11)
[2019-02-24] MEDS: AmLODIPine BESYLATE 10 MG TABLET PO SCH (10:11)
[2019-02-24] MEDS: DIVALPROEX SODIUM 250 MG ER TABLET PO SCH ×2 (10:12→17:38)
[2019-02-24] MEDS: ASPIRIN 81 MG EC TABLET PO SCH (10:12)
[2019-02-24 10:26] VITALS: BP 142/93
[2019-02-24 17:00] VITALS: BP 124/57
[2019-02-24] MEDS: TraZODone HCL 50 MG TABLET PO SCH (20:44)
[2019-02-25 00:10] VITALS: BP 142/106
[2019-02-25] MEDS: LORazepam 1 MG TABLET PO PRN (00:13)
[2019-02-25] MEDS: IBUPROFEN 400 MG TABLET PO PRN (00:13)
[2019-02-25] MEDS: LEVOTHYROXINE SODIUM 75 MCG TABLET PO SCH (06:35)
[2019-02-25 08:56] VITALS: BP 151/82
[2019-02-25] MEDS: DIVALPROEX SODIUM 250 MG ER TABLET PO SCH ×2 (09:01→16:10)
[2019-02-25] MEDS: ASPIRIN 81 MG EC TABLET PO SCH (09:01)
[2019-02-25] MEDS: AmLODIPine BESYLATE 10 MG TABLET PO SCH (09:01)
[2019-02-25] MEDS: FLUoxetine HCL 20 MG CAPSULE PO SCH (09:01)
[2019-02-25] MEDS: HydrALAZINE HCL 50 MG TABLET PO SCH ×2 (09:01→16:11)
[2019-02-25] MEDS: METOPROLOL SUCCINATE 25 MG ER TABLET PO SCH (09:01)
[2019-02-25] MEDS: OLANZapine 5 MG TABLET PO SCH ×2 (09:06→20:52)
[2019-02-25 16:01] VITALS: BP 149/78
[2019-02-25] MEDS: TraZODone HCL 50 MG TABLET PO SCH (20:52)
[2019-02-26] MEDS: LORazepam 1 MG TABLET PO PRN (00:46)
[2019-02-26] MEDS: IBUPROFEN 400 MG TABLET PO PRN (00:46)
[2019-02-26 00:48] VITALS: BP 143/80
[2019-02-26] MEDS: LEVOTHYROXINE SODIUM 75 MCG TABLET PO SCH (06:55)
[2019-02-26] MEDS: HydrALAZINE HCL 50 MG TABLET PO SCH ×2 (09:00→18:07)
[2019-02-26] MEDS: METOPROLOL SUCCINATE 25 MG ER TABLET PO SCH (09:00)
[2019-02-26] MEDS: OLANZapine 5 MG TABLET PO SCH ×2 (09:00→20:52)
[2019-02-26] MEDS: ASPIRIN 81 MG EC TABLET PO SCH (09:00)
[2019-02-26] MEDS: AmLODIPine BESYLATE 10 MG TABLET PO SCH (09:00)
[2019-02-26] MEDS: DIVALPROEX SODIUM 250 MG ER TABLET PO SCH ×2 (09:00→18:07)
[2019-02-26] MEDS: FLUoxetine HCL 20 MG CAPSULE PO SCH (09:00)
[2019-02-26 09:45] VITALS: BP 135/77
[2019-02-26] MEDS: TraZODone HCL 50 MG TABLET PO SCH (20:52)
[2019-02-27 04:18] VITALS: BP 128/92
[2019-02-27] MEDS: IBUPROFEN 400 MG TABLET PO PRN ×2 (04:18→12:52)
[2019-02-27] MEDS: LORazepam 1 MG TABLET PO PRN (04:18)
[2019-02-27] MEDS: LEVOTHYROXINE SODIUM 75 MCG TABLET PO SCH (07:02)
[2019-02-27] MEDS: OLANZapine 5 MG TABLET PO SCH ×2 (09:15→21:11)
[2019-02-27] MEDS: HydrALAZINE HCL 50 MG TABLET PO SCH ×2 (09:15→17:06)
[2019-02-27] MEDS: METOPROLOL SUCCINATE 25 MG ER TABLET PO SCH (09:16)
[2019-02-27] MEDS: DIVALPROEX SODIUM 250 MG ER TABLET PO SCH ×2 (09:16→17:07)
[2019-02-27] MEDS: ASPIRIN 81 MG EC TABLET PO SCH (09:16)
[2019-02-27] MEDS: FLUoxetine HCL 20 MG CAPSULE PO SCH (09:17)
[2019-02-27] MEDS: AmLODIPine BESYLATE 10 MG TABLET PO SCH (09:17)
[2019-02-27 11:02] VITALS: BP 166/82
[2019-02-27 17:00] VITALS: BP 142/63
[2019-02-27] MEDS: TraZODone HCL 50 MG TABLET PO SCH (21:11)
[2019-02-28] MEDS: IBUPROFEN 400 MG TABLET PO PRN ×3 (00:38→23:08)
[2019-02-28 00:39] VITALS: BP 138/79
[2019-02-28] MEDS: LORazepam 1 MG TABLET PO PRN ×2 (00:39→23:12)
[2019-02-28] MEDS: LEVOTHYROXINE SODIUM 75 MCG TABLET PO SCH (06:44)
[2019-02-28 09:35] VITALS: BP 168/108
[2019-02-28] MEDS: FLUoxetine HCL 20 MG CAPSULE PO SCH (09:39)
[2019-02-28] MEDS: METOPROLOL SUCCINATE 25 MG ER TABLET PO SCH (09:39)
[2019-02-28] MEDS: AmLODIPine BESYLATE 10 MG TABLET PO SCH (09:39)
[2019-02-28] MEDS: ASPIRIN 81 MG EC TABLET PO SCH (09:39)
[2019-02-28] MEDS: DIVALPROEX SODIUM 250 MG ER TABLET PO SCH ×2 (09:39→16:03)
[2019-02-28] MEDS: OLANZapine 5 MG TABLET PO SCH ×2 (09:39→21:07)
[2019-02-28] MEDS: HydrALAZINE HCL 50 MG TABLET PO SCH ×2 (10:30→16:02)
[2019-02-28 13:12] VITALS: BP 148/65
[2019-02-28 19:33] VITALS: BP 129/69
[2019-02-28] MEDS: TraZODone HCL 50 MG TABLET PO SCH (21:07)
[2019-02-28 23:05] VITALS: BP 148/67
[2019-03-01 00:58] VITALS: BP 119/65
[2019-03-01] MEDS: LEVOTHYROXINE SODIUM 75 MCG TABLET PO SCH (06:39)
[2019-03-01 08:13] LABS: CREATININE 1.37 mg/dL (0.60-1.30); POTASSIUM 4.9 mmol/L (3.5-5.1)
[2019-03-01] MEDS: AmLODIPine BESYLATE 10 MG TABLET PO SCH (09:28)
[2019-03-01] MEDS: METOPROLOL SUCCINATE 25 MG ER TABLET PO SCH (09:28)
[2019-03-01] MEDS: DIVALPROEX SODIUM 250 MG ER TABLET PO SCH ×3 (09:29→16:24)
[2019-03-01] MEDS: HydrALAZINE HCL 50 MG TABLET PO SCH ×3 (09:29→16:24)
[2019-03-01] MEDS: ASPIRIN 81 MG EC TABLET PO SCH (09:29)
[2019-03-01] MEDS: FLUoxetine HCL 20 MG CAPSULE PO SCH (09:29)
[2019-03-01] MEDS: OLANZapine 5 MG TABLET PO SCH (09:29)
[2019-03-01] MEDS ORDERED: PNEUMOCOCCAL VACCINE POLYVALENT 0.5 ML VIAL [PPSV23] IM ONE (10:45)
[2019-03-01] MEDS ORDERED: HEPATITIS A VACCINE, INACTI [ADULT] 1,440 UNITS/ML VIAL IM ONE (10:45)
[2019-03-01] MEDS ORDERED: INFLUENZA VIRUS VACCINE QVS 2019-20 (3YR+)/PF 60 MCG/0.5 ML SYRINGE IM ONE (10:45)
[2019-03-01 11:48] VITALS: BP 156/87
[2019-03-01] MEDS ORDERED: FLUO-191 PO (11:50)
[2019-03-01] MEDS ORDERED: DIVA250T45 PO (11:51)
[2019-03-01] MEDS ORDERED: TRAZ-252 PO (11:51)
[2019-03-01] MEDS ORDERED: AMLO10TA7 PO (12:04)
[2019-03-01] MEDS ORDERED: HYDR-2924 PO (12:05)
[2019-03-01] MEDS ORDERED: TUBERCULIN, PURIFIED PROTEIN DERIVATIVE 5 TU/0.1 ML SYRINGE ID STA (14:27)
[2019-03-01 16:00] VITALS: BP 149/87
== END 2019-03-01 20:25 | DRG 885 ==
LOC: EMS 14:24 → 3EI 12-12 00:11
PROVIDERS: ADMIT Psychiatry & Neurology Child & Adolescent Psychiatry; ATTEND Psychiatry & Neurology Child & Adolescent Psychiatry
DX: F25.1 Schizoaffective disorder, depressive type (principal); N18.9 Chronic kidney disease, unspecified; I13.0 Hypertensive heart and chronic kidney disease with heart failure and stage 1 through stage 4 chronic kidney disease, or unspecified chronic kidney disease; R45.851 Suicidal ideations; D64.9 Anemia, unspecified; E03.9 Hypothyroidism, unspecified; E78.00 Pure hypercholesterolemia, unspecified; E78.5 Hyperlipidemia, unspecified; F03.90 Unspecified dementia, unspecified severity, without behavioral disturbance, psychotic disturbance, mood disturbance, and anxiety; F31.32 Bipolar disorder, current episode depressed, moderate; R13.10 Dysphagia, unspecified; I50.9 Heart failure, unspecified; N40.0 Benign prostatic hyperplasia without lower urinary tract symptoms; I25.10 Atherosclerotic heart disease of native coronary artery without angina pectoris; Z91.5 Personal history of self-harm; Z23 Encounter for immunization; Z59.0 Homelessness; Z91.013 Allergy to seafood; Z79.82 Long term (current) use of aspirin; Z79.899 Other long term (current) drug therapy
CPT/HCPCS: 70450; 73503; 83735; 84100; 84439; 84443; 87081; 90632; 90686; 90732; 92610; 93005; 93306; 97161; 97166; G0480; J1200; J1630; J2060; J3535; Q0162